=== PATIENT | male | born 1940 | race Caucasian/White ===

== ENCOUNTER 2016-09-08 16:39 | Outpatient (CLI) | payer MEDICARE | END 2016-09-08 16:40 | disposition home or self-care (01) | DX: M50.31 Other cervical disc degeneration, high cervical region (principal); M47.812 Spondylosis without myelopathy or radiculopathy, cervical region ==

== ENCOUNTER 2017-04-12 08:00 | Outpatient (CLI) | payer MEDICARE ==
[2017-04-12 18:15] LABS: BASOPHILS % (AUTO) 0.6 %; EOSINOPHILS # (AUTO) 0.2 10^3/uL (0.0-0.7); HCT - HEMATOCRIT 42.6 % (42.0-52.0); HGB - HEMOGLOBIN 14.1 g/dL (14.0-18.0); LYMPHOCYTES # (AUTO) 0.9 10^3/uL (1.5-3.5); LYMPHOCYTES % (AUTO) 12.7 %; MEAN CORPUSCULAR HEMOGLOBIN 30.8 pg (27.0-31.0); MEAN CORPUSCULAR HGB CONC 33.2 g/dL (32.0-36.0); MEAN CORPUSCULAR VOLUME 92.6 fL (80.0-94.0); MEAN PLATELET VOLUME 8.2 fL (7.4-11.4); MONOCYTES # (AUTO) 0.5 10^3/uL (0.0-1.0); MONOCYTES % (AUTO) 7.4 %; NEUTROPHILS # (AUTO) 5.3 10^3/uL (1.5-6.6); NEUTROPHILS % (AUTO) 76.3 %; NUCLEATED RED BLOOD CELLS AUTO 0.4 /100WBC; RED CELL DISTRIBUTION WIDTH 15.1 % (12.0-15.0); UNCORRECTED WHITE BLOOD COUNT 6.9 x10^3/uL; WHITE BLOOD COUNT 6.9 x10^3/uL (4.8-10.8)
[2017-04-12 18:42] LABS: ALBUMIN/GLOBULIN RATIO 1.5 (1.0-2.2); BILIRUBIN,TOTAL 0.4 mg/dL (0.2-1.0); BUN - BLOOD UREA NITROGEN 16 mg/dL (6-20); CALCIUM 8.9 mg/dL (8.5-10.3); CARBON DIOXIDE - CO2 25 mmol/L (21-32); CHLORIDE 104 mmol/L (101-111); CHOL/HDL RATIO 2.8 (<5.0); CHOLESTEROL 173 mg/dL; CREATININE 0.9 mg/dL (0.6-1.2); GFR - MDRD 82 (>89); GLUCOSE 92 mg/dL (70-100); HDL CHOLESTEROL 61 mg/dL; LDL/HDL RATIO 1.6 (<3.6); POTASSIUM 4.2 mmol/L (3.5-5.0); SODIUM 135 mmol/L (135-145); TOTAL PROTEIN 6.3 g/dL (6.7-8.2); TRIGLYCERIDES 67 mg/dL; VLDL CHOLESTEROL 13 mg/dL
== END 2017-04-12 08:01 | disposition home or self-care (01) ==
LOC: LAB.R 08:00 → LAB.S 08:01
PROVIDERS: ATTEND Nurse Practitioner Family
DX: K92.2 Gastrointestinal hemorrhage, unspecified (principal)
CPT/HCPCS: 36415; 80053; 80061; 85025; G0103; 84153

== ENCOUNTER 2018-02-28 11:34 | Outpatient (CLI) | payer MEDICARE ==
--- NOTE | 2018-02-28 12:29 | XRAY Report ---
Procedure Date: 02/28/2018 Accession Number: [id number] / [id number] Procedure: XRS - Knee 2 View RT CPT Code: FULL RESULT: EXAM: Knee 2 View RT DATE: 02/28/2018 11:59 AM CLINICAL HISTORY: KNEE PAIN, RIGHT, ACUTE COMPARISON: None. TECHNIQUE: 2 views. FINDINGS: Evaluation is limited by suboptimal lateral view. Bones: No fracture is identified. There are mild degenerative changes. Joints: No joint effusion is identified. No subluxation is identified. Soft Tissues: A linear density in the prepatellar soft tissues should be correlated to a potential foreign body. IMPRESSION: Possible foreign body in the prepatellar soft tissues. No fracture or dislocation. Mild degenerative changes. RADIA
== END 2018-02-28 11:35 | disposition home or self-care (01) ==
LOC: DI.S 11:34
PROVIDERS: ATTEND Nurse Practitioner Family
DX: M17.11 Unilateral primary osteoarthritis, right knee (principal)

== ENCOUNTER 2018-04-24 21:27 | Outpatient (CLI) | payer MEDICARE | END 2018-04-24 21:28 | disposition critical access hospital (66) | LOC: EMS 21:27 | PROVIDERS: ATTEND Surgery | DX: K62.5 Hemorrhage of anus and rectum (principal); R55 Syncope and collapse | CPT/HCPCS: A0425; A0427 ==

== ENCOUNTER 2018-04-24 22:02 | Inpatient (IN) | payer MEDICARE ==
[2018-04-24] MEDS ORDERED: SODIUM CHLORIDE 0.9% 2,000 ML IV ONE (22:15)
[2018-04-24] MEDS ORDERED: PANTOPRAZOLE 80 MG in SODIUM CHLORIDE 0.9% 100ML 100 ML IV STA ×2 (22:15→22:16)
--- NOTE | 2018-04-24 22:20 | ED Physician Documentation ---
History of Present Illness - Stated complaint Stated Complaint: GI BLEED - Chief complaint Chief Complaint: Abd Pain - Additonal information Additional information: 78-year-old male presents the emergency department for evaluation of lower GI bleeding which started this evening. The patient reports 4 episodes of bright red blood per rectum. The patient reports an episode of being very lightheaded and passing out. The patient denies injury to his head, neck or torso. The patient has a history of lower GI bleeding in the past which required transfusion. The patient denies any anticoagulant use. Symptoms are described as severe Review of Systems Constitutional: denies: Fever Eyes: denies: Loss of vision Ears: denies: Ear pain Nose: denies: Congestion Throat: denies: Dental pain / toothache Cardiac: denies: Chest pain / pressure GI: reports: Abdominal Pain, Bloody / black stool : denies: Dysuria Musculoskeletal: denies: Neck pain Neurologic: reports: Syncope Psychiatric: denies: Hallucinations Immunocompromised: denies: Immunocompromised PD PAST MEDICAL HISTORY - Past Medical History Cardiovascular: High cholesterol Respiratory: Sleep apnea Endocrine/Autoimmune: None GI: Ulcers, Hiatal hernia, Colon polyps : Frequency HEENT: None Psych: Depression Musculoskeletal: None Derm: None - Past Surgical History Past Surgical History: Yes General: Hiatal hernia repair Cardiovascular: AAA - Present Medications Home Medications: Ambulatory Orders Medication Instructions Recorded Confirmed FLUoxetine [PROzac] 20 mg PO DAILY 12/23/12 12/23/12 Ranitidine HCl [Acid Control] 150 mg PO ONCEDAILY 12/23/12 12/23/12 Zolpidem [Ambien] 10 mg PO HS 12/23/12 12/23/12 Loratadine [Allergy] 04/24/18 Simvastatin 10 mg PO 04/24/18 - Allergies Allergies/Adverse Reactions: Allergies Allergy/AdvReac Type Severity Reaction Status Date / Time No Known Drug Allergies Allergy Verified 04/24/18 22:09 - Social History Does the pt smoke?: No Smoking Status: Never smoker Does the pt drink ETOH?: Yes ETOH Use: Wine Does the pt have substance abuse?: No - Immunizations Immunizations are current?: Yes - POLST Patient has POLST: No PD ED PE NORMAL - General General: Alert and oriented X 3. No: No acute distress (The patient appears acutely ill) - HEENT HEENT: Atraumatic, PERRL, EOMI - Neck Neck: Supple, no meningeal sign - Cardiac Cardiac: RRR, Strong equal pulses - Respiratory Respiratory: No respiratory distress - Abdomen Abdomen: Soft. No: Non tender (Diffuse abdominal tenderness) - Back Back: No CVA TTP - Derm Derm: Normal color - Extremities Extremities: No deformity - Neuro Neuro: Alert and oriented X 3, Normal speech - Psych Psych: Normal mood Results - Vitals Vitals: Vital Signs - 24 hr 04/24/18 04/24/18 22:04 23:27 Temperature 36.2 C L Heart Rate 66 66 Respiratory 14 14 Rate Blood Pressure 108/71 116/63 O2 Saturation 100 98 Oxygen O2 Source Room air - Labs Labs: Laboratory Tests 04/24/18 04/24/18 04/24/18 22:15 22:15 22:15 WBC 11.2 H RBC 3.54 L Hgb 11.3 L Hct 32.7 L MCV 92.3 MCH 32.0 H MCHC 34.7 RDW 13.8 Plt Count 254 MPV 7.5 Neut # (Auto) 9.6 H Lymph # (Auto) 0.9 L Douglas # (Auto) 0.5 Eos # (Auto) 0.1 Baso # (Auto) 0.0 Absolute Nucleated RBC 0.00 Nucleated RBC % 0.0 PT 12.2 INR 1.1 APTT 20.6 L Sodium 139 Potassium 3.7 Chloride 108 Carbon Dioxide 24 Anion Gap 7.0 BUN 17 Creatinine 1.1 Estimated GFR (MDRD) 65 L Glucose 149 H Calcium 8.1 L Total Bilirubin 0.5 AST 16 ALT 24 Alkaline Phosphatase 38 L Troponin I Total Protein 4.9 L Albumin 3.0 L Globulin 1.9 L Albumin/Globulin Ratio 1.6 Lipase 23 Urine Color Urine Clarity Urine pH Ur Specific Formoso Urine Protein Urine Glucose (UA) Urine Ketones Urine Occult Blood Urine Nitrite Urine Bilirubin Urine Urobilinogen Ur Leukocyte Esterase Ur Microscopic Review Urine Culture Comments Ethyl Alcohol < 5.0 Blood Type Antibody Screen 04/24/18 04/24/18 04/25/18 22:15 22:15 00:12 WBC RBC Hgb Hct MCV MCH MCHC RDW Plt Count MPV Neut # (Auto) Lymph # (Auto) Douglas # (Auto) Eos # (Auto) Baso # (Auto) Absolute Nucleated RBC Nucleated RBC % PT INR APTT Sodium Potassium Chloride Carbon Dioxide Anion Gap BUN Creatinine Estimated GFR (MDRD) Glucose Calcium Total Bilirubin AST ALT Alkaline Phosphatase Troponin I 0.04 Total Protein Albumin Globulin Albumin/Globulin Ratio Lipase Urine Color YELLOW Urine Clarity CLEAR Urine pH 6.0 Ur Specific Formoso 1.025 Urine Protein NEGATIVE Urine Glucose (UA) NEGATIVE Urine Ketones 15 H Urine Occult Blood NEGATIVE Urine Nitrite NEGATIVE Urine Bilirubin NEGATIVE Urine Urobilinogen 0.2 (NORMAL) Ur Leukocyte Esterase NEGATIVE Ur Microscopic Review NOT INDICATED Urine Culture Comments NOT INDICATED Ethyl Alcohol Blood Type A POSITIVE Antibody Screen NEGATIVE - Rads (name of study) CT abd/pelvis Radiology: Final report received (IMPRESSION: 1. No acute inflammatory or obstructive process seen in the abdomen or pelvis. 2. Small hiatal hernia. 3. Colonic diverticulosis. 4. Post-prostatectomy and partial colectomy. 5. Moderate atherosclerotic disease of the aorta and branches. Severe ) PD MEDICAL DECISION MAKING - ED course ED course: The patient has not had any further episodes of bleeding while in the emergency department. The patient will require admission to the hospital for further evaluation, multiple CBCs and evaluation for colonoscopy. And possibly transfusion. The findings and plan were discussed with the patient who understands and agrees to the plan. The case is discussed with the hospitalist Dr. Shane who accepts the patient onto her service. - Sepsis Event Vital Signs: Vital Signs - 24 hr 04/24/18 04/24/18 22:04 23:27 Temperature 36.2 C L Heart Rate 66 66 Respiratory 14 14 Rate Blood Pressure 108/71 116/63 O2 Saturation 100 98 Oxygen O2 Source Room air Departure - Departure Disposition: 66 [facility] DC/Xfer Clinical Impression: Iliac artery aneurysm GI bleed Qualifiers: GI bleed type/associated pathology: unspecified gastrointestinal hemorrhage type Qualified Code(s): K92.2 - Gastrointestinal hemorrhage, unspecified Abdominal pain Qualifiers: Abdominal location: unspecified location Qualified Code(s): R10.9 - Unspecified abdominal pain Syncopal episodes Qualifiers: Syncope type: unspecified Qualified Code(s): R55 - Syncope and collapse
[2018-04-24 22:22] LABS: BASOPHILS % (AUTO) 0.3 %; EOSINOPHILS # (AUTO) 0.1 10^3/uL (0.0-0.7); EOSINOPHILS % (AUTO) 0.5 %; HGB - HEMOGLOBIN 11.3 g/dL (14.0-18.0); LYMPHOCYTES # (AUTO) 0.9 10^3/uL (1.5-3.5); LYMPHOCYTES % (AUTO) 8.2 %; MEAN CORPUSCULAR HGB CONC 34.7 g/dL (32.0-36.0); MEAN CORPUSCULAR VOLUME 92.3 fL (80.0-94.0); MEAN PLATELET VOLUME 7.5 fL (7.4-11.4); MONOCYTES # (AUTO) 0.5 10^3/uL (0.0-1.0); MONOCYTES % (AUTO) 4.8 %; NEUTROPHILS # (AUTO) 9.6 10^3/uL (1.5-6.6); NEUTROPHILS % (AUTO) 86.2 %; PLT - PLATELET COUNT 254 10^3/uL (130-450); RED BLOOD COUNT 3.54 10^6/uL (4.70-6.10); RED CELL DISTRIBUTION WIDTH 13.8 % (12.0-15.0); WHITE BLOOD COUNT 11.2 x10^3/uL (4.8-10.8)
[2018-04-24 22:29] LABS: INR 1.1 (0.8-1.2); PT - PROTHROMBIN TIME 12.2 secs (9.9-12.6)
[2018-04-24 22:36] LABS: ALBUMIN/GLOBULIN RATIO 1.6 (1.0-2.2); ALKALINE PHOSPHATASE 38 IU/L (42-121); ALT ALANINE AMINOTRANSFERASE 24 IU/L (10-60); AST ASPARTATE AMINOTRANSFERASE 16 IU/L (10-42); BILIRUBIN,TOTAL 0.5 mg/dL (0.2-1.0); BUN - BLOOD UREA NITROGEN 17 mg/dL (6-20); CALCIUM 8.1 mg/dL (8.5-10.3); CARBON DIOXIDE - CO2 24 mmol/L (21-32); CHLORIDE 108 mmol/L (101-111); CREATININE 1.1 mg/dL (0.6-1.2); GFR - MDRD 65 (>89); GLUCOSE 149 mg/dL (70-100); LIPASE 23 U/L (22-51); SODIUM 139 mmol/L (135-145); TOTAL PROTEIN 4.9 g/dL (6.7-8.2)
[2018-04-24] MEDS ORDERED: IOPAMIDOL-300 100 ML VIAL ONE (23:32)
[2018-04-24] MEDS ORDERED: IOPAMIDOL-300 100 ML VIAL IVP ONE (23:52)
--- NOTE | 2018-04-25 00:09 | CT Report ---
Reason: pain Procedure Date: 04/24/2018 Accession Number: [id number] / [id number] Procedure: CT - Abdomen/Pelvis W/ CPT Code: FULL RESULT: EXAM: CT ABDOMEN AND PELVIS EXAM DATE: 04/24/2018 11:57 PM. CLINICAL HISTORY: Pain. COMPARISONS: CT ABD AND PELVIS WITH CONTRAST 11/08/2012 3:48 PM. TECHNIQUE: Routine helical CT imaging was performed through the abdomen and pelvis. IV contrast: Yes. Enteric contrast: No. Reconstructions: Coronal and sagittal. In accordance with CT protocol optimization, one or more of the following dose reduction techniques were utilized for this exam: automated exposure control, adjustment of mA and/or KV based on patient size, or use of iterative reconstructive technique. FINDINGS: Lung Bases: Small hiatal hernia. Severe coronary calcifications. Liver: Unremarkable. No suspicious masses. Gallbladder/Bile Ducts: Unremarkable. Spleen: Unremarkable. Pancreas: Unremarkable. Adrenal Glands: Unremarkable. Kidneys: Small cysts bilaterally. No suspicious masses or hydronephrosis. Peritoneal Cavity/Bowel: Colonic diverticulosis. Evidence of previous partial colectomy. No bowel obstruction or inflammatory process seen. No free air or significant free fluid. No masses or adenopathy. The appendix is normal. No excessive stool burden. Pelvic Organs: Suspect prior prostatectomy. Bladder appears unremarkable. Vasculature: Right common internal iliac artery aneurysms measuring up to 35 x 34 mm. Mild ectasia of the left common iliac artery up to 25 mm. No aortic aneurysm or acute vascular abnormality seen. Underlying moderate atherosclerotic disease of the aorta and branches. Bones: No significant abnormality with note of advanced lower lumbar degenerative changes. Other: None. IMPRESSION: 1. No acute inflammatory or obstructive process seen in the abdomen or pelvis. 2. Small hiatal hernia. 3. Colonic diverticulosis. 4. Post-prostatectomy and partial colectomy. 5. Moderate atherosclerotic disease of the aorta and branches. Severe coronary calcifications. 6. Right common internal iliac artery aneurysm measuring up to 35 x 34 mm, increased from prior study when it measured 30 x 30 mm at the same level. RADIA ADDENDUM: 04/25/18 00:42 Additional history: Cramping abdominal pain. GI bleed.
[2018-04-25 00:18] LABS: BILIRUBIN,URINE NEGATIVE (NEGATIVE); GLUCOSE, URINE (UA) NEGATIVE (NEGATIVE); KETONES,URINE (UA) 15 mg/dL (NEGATIVE); LEUKOCYTE ESTERASE, URINE NEGATIVE (NEGATIVE); NITRITE,URINE NEGATIVE (NEGATIVE); OCCULT BLOOD,URINE NEGATIVE (NEGATIVE); PROTEIN,URINE NEGATIVE (NEGATIVE); UROBILINOGEN,URINE 0.2 (NORMAL) E.U./dL (NORMAL)
[2018-04-25 00:20] LABS: CLARITY,URINE CLEAR (CLEAR)
--- NOTE | 2018-04-25 00:24 | HISTORY & PHYSICAL EXAMINATION ---
Chief Complaint - Chief Complaint Chief Complaint: Syncope after 4 bloody bowel movements History of Present Illness - Admitted From Admitted From:: ER/Home - History Obtained From Records Reviewed: Kieran Malave History obtained from: Patient Exam Limitations: Forgetful - History of Present Illness HPI Comment/Other: 78-year-old white male who presents with 4 episodes of bright red blood per rectum in the last day. This made him lightheaded and dizzy and he passed out. EMS reported that his systolic was 70 but when he was brought to our emergency room his systolic is been consistently above 100. His usual blood pressure is 100-108 according to some of his records at [facility], and his primary care provider. Previous hemoglobin April 2017 is 14.1. With today's visit to the emergency room it is now 11. He does have a history of lower GI bleeding and has had a left hemicolectomy because of it. In the past his hemoglobin has been as low as 7 when he needed transfusions. With his last GI bleed in September 2016 he dropped to 10 g of hemoglobin when he was seen at the [facility]. With that visit he was sent home from the emergency room.He also has a history of prostate cancer with a prostatectomy But he did not get radiation. He has no history of radiation proctitis. He denies chest pain, shortness of breath. He is tired. He was last seen by his primary care provider in October 2017 when he was complaining of belching and acid reflux as well as fatigue. Although that Resulted in referral to the [facility], there is no record of what was done With that visit . He reports that he was told to take ranitidine twice a day as opposed to once a day.The patient admits that memory is starting to get to be a problem for him. He cannot remember some of the visits he has been to. I had to remind him that he been at [facility] in September 2016. I also had to remind him that he was at [facility] for an episode of GI bleeding and admission. He drinks 1-2 drinks a day but wonders if maybe he drinks more. He also states that last night he drank 4-5 drinks because he had a fight with his girlfriend and broke up with her. This is important to him because he associates alcohol intake with GI bleeding. 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 EGd and scope w hiatal hernia, esophagitis, diverticular disease. Seen by [facility] 09/2010 who recommended surgery. Then seen at [facility] 11/05/13 for another GI bleed and pancolonic diverticulosis found again. [facility] w [facility] 09/2016. Resulted in sigmoid colectomy) : reports: Nocturia (Once a night), Frequency, Other (Left kidney mass being follow-through surveillance) HEENT: reports: Chronic hearing loss ( and needs hearing aids.) Psych: reports: Depression (With insomnia. He is on Ambien 10 mg tablet one half tablet a day with an agreement of no more than 70 tablets per month.) Musculoskeletal: reports: Osteoarthritis, Other (Fall with right knee pain January 2018.Carpal tunnel syndrome.) Derm: reports: None MRSA Hx?: No - Past Surgical History General: reports: Hiatal hernia repair, Other (Right inguinal hernia repair 1993) Cardiovascular: reports: AAA Other past surgical history: prostatectomy - Family & Social History Family History Comment/Other: Dad: at 77 of complications of alcoholism and smoking. Mom:Had severe depression and of suicide. Siblings:One half brother who he is not in contact with for the last 2 years because they had a fight. Is morbidly obese but does not know anything else about his medical history. Children: 5 Children. All 5 are on antidepressants. Two are alcoholics. To his knowledge no one has cancer, heart attack, stroke, diabetes, thyroid disease. Living arrangement: At home Living Situation: Alone Social History Notes: He was born in [place]. Came out to the [facility] when he was 16 because his dad moved. He has been and 4 times. 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 He smoked socially in the 1960s and did it only when he went out at night. Maybe 2-3 cigarettes a night at a time. Quit smoking in the . Alcohol is a glass of wine, up to 2 a night. Last night was 5. He lives alone. Again broke up with his last girlfriend last night. He denies recreational substance abuse. States that he is still able to do his activities of daily living and can drive a car, clean his house, pay the bills. Does not need a cane or walker. - Substance History Use: Uses substance without health or social issues: Alcohol Abuse: Recurrent use of substance despite neg consequences: NONE Dependence: Experiences withdrawal or developed tolerances: NONE - POLST Patient has POLST: No POLST Status: Full Code (He states that he has never been asked before about his advanced directives or CODE STATUS. He is startled about the question I explained to him that it is a fairly routine question we ask and people who were in the hospital, especially if they are over 55. He says that he will have to think about what he defines as a quality of life to then make himself DNR.) Meds/Allgy - Home Medications Home Medications: Ambulatory Orders Medication Instructions Recorded Confirmed FLUoxetine [PROzac] 20 mg PO DAILY 12/23/12 12/23/12 Ranitidine HCl [Acid Control] 150 mg PO ONCEDAILY 12/23/12 12/23/12 Zolpidem [Ambien] 10 mg PO HS 12/23/12 12/23/12 Loratadine [Allergy] 04/24/18 Simvastatin 10 mg PO 04/24/18 - Allergies Allergies/Adverse Reactions: Allergies Allergy/AdvReac Type Severity Reaction Status Date / Time No Known Drug Allergies Allergy Verified 04/24/18 22:09 Review of Systems - Constitutional Constitutional: reports: Fatigue. denies: Fever, Chills, Malaise, Weakness, Poor appetite, Diaphoresis, Night sweats, Weight gain, Weight loss - Eyes Eyes: denies: Pain, Irritation, Amaurosis, Blurred vision, Field loss, Vision loss - Ears, Nose & Throat Ears, Nose & Throat: reports: Hearing loss. denies: Ear pain, Nasal obstruction, Nasal congestion, Postnasal drainage, Sore throat, Hoarseness - Cardiovascular Cariovascular: reports: Lightheadedness, Syncope. denies: Irregular heart rate, Palpitations, Chest pain, Edema, Exertional dyspnea, Decr. exercise tolerance - Respiratory Respiratory: reports: Apnea. denies: Cough, Sputum production, Wheezing, Snoring, Orthopnea, SOB at rest, SOB with exertion - Gastrointestinal Gastrointestinal: reports: Rectal bleeding, Bloody stools, Reflux/heartburn, Bloating. denies: Abdominal pain, Abdominal distention, Constipation, Diarrhea, Change in bowel habits, Nausea, Vomiting, Bile emesis, Coffee grounds emesis - Genitourinary Genitourinary: reports: Nocturia. denies: Dysuria, Frequency, Urgency, Hematuria, Incontinence, Flank pain - Musculoskeletal Musculoskeletal: denies: Muscle pain, Back pain, Muscle aches, Stiffness, Muscle weakness, Gout, Joint pain - Integumentary Integumentary: denies: Rash, Pruritis, Lesions, Dryness - Neurological Neurological: reports: Memory problems. denies: General weakness, Focal weakness, Headache, Dizziness, Abnormal gait, Seizures, Incoordination, Slurred speech - Psychiatric Psychiatric: reports: Depression, Anxiety. denies: Suicidal - Endocrine Endocrine: denies: Polyuria, Polydypsia, Polyphagia - Hematologic/Lymphatic Hematologic/Lymphatic: reports: Anemia. denies: Bruising, Petechiae Exam - Vital Signs Reviewed Vital Signs: Yes Vital Signs: Vital Signs x48h Temp Pulse Resp BP Pulse Ox 04/24/18 23:27 66 14 116/63 98 04/24/18 22:04 36.2 C L 66 14 108/71 100 - Physical Exam General Appearance: positive: No acute distress, Alert, Other (White male who looks younger than stated age, tanned) Eyes Bilateral: positive: PERRL, EOMI ENT: positive: Pharynx nml Neck: positive: No JVD. negative: Stiff neck, Carotid bruit Respiratory: negative: Chest non-tender, Wheezes, Rales, Rhonchi Cardiovascular: positive: Regular rate & rhythm, Systolic murmur. negative: Gallop/S4, Friction rub Peripheral Pulses: positive: 2+ Abdomen: positive: Non-tender, No organomegaly, Nml bowel sounds, No distention Skin: positive: Warm, Dry Extremities: positive: Full ROM, No pedal edema Neurologic/Psychiatric: positive: Oriented x3, CN's nml (2-12), Motor nml Conclusion/Plan - Problem List (1) Lower gastrointestinal bleed Conclusion/Plan: This will be 1 of many admissions for lower GI bleeding in this elderly gentleman. He is already received several transfusions in the past since 2004. Has had a left colectomy. Today presents as several bloody bowel movements with syncope. Troponins are negative. White blood pressure is low he is hemodynamically stable in the emergency room.Although he has had prostate cancer and a prostatectomy, he is not felt to be bleeding from proctitis, etc. He does have a history of esophagitis, but again, he is not felt to be having an upper GI bleed. Plan: Inpatient admission for GI bleed Every 6 hours hemoglobin and hematocrit General surgery consult Transfuse when hemoglobin less than 7 or patient becomes symptomatic with further syncope, angina, shortness of breath (2) Acute post-hemorrhagic anemia Conclusion/Plan: Hemoglobin is 14 a year ago. 11 today. Again, we will do every 6 hours hemoglobin and hematocrit. Transfusion recommendations as above. (3) Iliac artery aneurysm, right Conclusion/Plan: Evaluated by CT with contrast. His right common and internal iliac artery aneurysm is 35 x 34, increased from prior study when it measured 30 x 30 at the same level. He was referred to vascular surgery at [facility]. He says he is seen regularly. He was just seen 3 weeks ago according to his memory. At that time the aneurysm is about the same size as what is being described now according to him. (4) Insomnia secondary to depression with anxiety Conclusion/Plan: Has been taking Ambien for over 20 years. In the last few months he has been asked to decrease his Ambien use from 10 mg to 5 mg. He is also been asked to make the 20 tablets last a month. Will resume Ambien as needed while here to avoid withdrawal and increased anxiety. He will also be kept on his SSRI (5) Alcohol abuse Conclusion/Plan: This gentleman says that he drinks every day. He feels like he does not have a problem with alcohol abuse. No history of withdrawal, shakes, tremors. He has been told that he should cut back on his drinking by people in his life. 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 Follow-up in the outpatient setting with his primary care provider. - Lab Results Fish Bones: 04/24/18 22:15 04/24/18 22:15 - Diagnostic Imaging Results Diagnostic Imaging Results: positive: Final report reviewed Diagnostic Imaging Results Comments: CT abd/pelvis w contrast: FINDINGS: Lung Bases: Small hiatal hernia. Severe coronary calcifications. Liver: Unremarkable. No suspicious masses. Gallbladder/Bile Ducts: Unremarkable. Spleen: Unremarkable. Pancreas: Unremarkable. Adrenal Glands: Unremarkable. Kidneys: Small cysts bilaterally. No suspicious masses or hydronephrosis. Peritoneal Cavity/Bowel: Colonic diverticulosis. Evidence of previous partial colectomy. No bowel obstruction or inflammatory process seen. No free air or significant free fluid. No masses or adenopathy. The appendix is normal. No excessive stool burden. Pelvic Organs: Suspect prior prostatectomy. Bladder appears unremarkable. Vasculature: Right common internal iliac artery aneurysms measuring up to 35 x 34 mm. Mild ectasia of the left common iliac artery up to 25 mm. No aortic aneurysm or acute vascular abnormality seen. Underlying moderate atherosclerotic disease of the aorta and branches. Bones: No significant abnormality with note of advanced lower lumbar degenerative changes. Other: None. IMPRESSION: 1. No acute inflammatory or obstructive process seen in the abdomen or pelvis. 2. Small hiatal hernia. 3. Colonic diverticulosis. 4. Post-prostatectomy and partial colectomy. 5. Moderate atherosclerotic disease of the aorta and branches. Severe coronary calcifications. 6. Right common internal iliac artery aneurysm measuring up to 35 x 34 mm, increased from prior study when it measured 30 x 30 mm at the same level. - EKG Results EKG Interpreted Independently: No EKG Findings: NSR. RBBB. IVCD. Core Measures - Anticipated LOS I expect patient to be DC'd or transferred within 96 hours.: Yes - DVT/VTE - Prophylaxis VTE/DVT Device ordered at admit?: Yes
[2018-04-25] MEDS ORDERED: ONDANSETRON 4 MG/2 ML VIAL IVP PRN (00:42)
[2018-04-25] MEDS ORDERED: PROCHLORPERAZINE 10 MG/2 ML VIAL IVP PRN (00:42)
[2018-04-25] MEDS: SODIUM CHLORIDE 0.9% 1,000 ML IV SCH ×3 (01:57→23:07)
[2018-04-25] MEDS: SODIUM CHLORIDE FLUSH 0.9% 10 ML SYRINGE IVP SCH ×3 (01:58→21:51)
[2018-04-25 05:46] LABS: CALCIUM 7.9 mg/dL (8.5-10.3); CREATININE 0.7 mg/dL (0.6-1.2)
[2018-04-25] MEDS: SODIUM CHLORIDE FLUSH 0.9% 10 ML SYRINGE IVP PRN ×2 (06:35→09:15)
[2018-04-25] MEDS: PANTOPRAZOLE 40 MG VIAL IVP SCH (06:35)
[2018-04-25] MEDS: POLYETHYLENE GLYCOL 3350 17 GM PACKET PO SCH (07:57)
[2018-04-25] MEDS: FLUoxetine 10 MG CAPSULE PO SCH (08:18)
[2018-04-25] MEDS ORDERED: INSULIN REGULAR HUMAN 100 UNIT/1 ML 10 ML MDV IVP STA (09:10)
[2018-04-25] MEDS ORDERED: DEXTROSE 50% ABBOJECT 25 GM/50 ML SYRINGE IVP STA (09:10)
--- NOTE | 2018-04-25 09:29 | PROVIDER PROGRESS NOTE ---
Hospitalist Cross-cover Note - Cross-Cover Note Cross-Cover Note: Patient admitted last night for GI bleed. Came to the emergency department after having numerous episodes of bright red blood per rectum. Patient's baseline hemoglobin was 14 and on presentation was down to 11. Recheck this morning his hemoglobin is down to 10. Overnight he has not had any further bloody bowel movements. He appears to be stable in bed and was examined without any significant findings on examination. Patient will be monitored throughout the day with serial H&H if he does not have any further episodes of bleeding and hemoglobin remained stable he may be discharged tomorrow morning. If patient starts to have increased bleeding or hemoglobin starts to drop we will need to consult surgery for colonoscopy.
[2018-04-25] MEDS: ZOLPIDEM 5 MG TABLET PO SCH (21:50)
[2018-04-26] MEDS: SODIUM CHLORIDE FLUSH 0.9% 10 ML SYRINGE IVP SCH ×3 (00:44→21:47)
[2018-04-26 05:44] LABS: ALBUMIN 2.7 g/dL (3.2-5.5); ALBUMIN/GLOBULIN RATIO 1.6 (1.0-2.2); ALKALINE PHOSPHATASE 38 IU/L (42-121); ALT ALANINE AMINOTRANSFERASE 10 IU/L (10-60); AST ASPARTATE AMINOTRANSFERASE 13 IU/L (10-42); BILIRUBIN,TOTAL 0.6 mg/dL (0.2-1.0); BUN - BLOOD UREA NITROGEN 11 mg/dL (6-20); CALCIUM 7.7 mg/dL (8.5-10.3); CARBON DIOXIDE - CO2 23 mmol/L (21-32); CHLORIDE 111 mmol/L (101-111); CREATININE 0.8 mg/dL (0.6-1.2); GFR - MDRD 93 (>89); GLUCOSE 102 mg/dL (70-100); SODIUM 138 mmol/L (135-145); TOTAL PROTEIN 4.4 g/dL (6.7-8.2)
[2018-04-26 05:54] LABS: VBG PH 7.374 (7.31-7.41)
[2018-04-26 06:11] LABS: HGB - HEMOGLOBIN 8.2 g/dL (14.0-18.0); MEAN CORPUSCULAR HGB CONC 33.4 g/dL (32.0-36.0); MEAN CORPUSCULAR VOLUME 92.8 fL (80.0-94.0); RED BLOOD COUNT 2.63 10^6/uL (4.70-6.10); RED CELL DISTRIBUTION WIDTH 13.9 % (12.0-15.0); WHITE BLOOD COUNT 4.4 x10^3/uL (4.8-10.8)
[2018-04-26] MEDS: PANTOPRAZOLE 40 MG VIAL IVP SCH (06:18)
[2018-04-26] MEDS: SODIUM CHLORIDE FLUSH 0.9% 10 ML SYRINGE IVP PRN (06:24)
[2018-04-26] MEDS: FLUoxetine 10 MG CAPSULE PO SCH (08:48)
[2018-04-26] MEDS: CALCIUM CARBONATE CHEW 500 MG TABLET PO PRN ×2 (08:48→14:42)
[2018-04-26] MEDS: POLYETHYLENE GLYCOL 3350 17 GM PACKET PO SCH (08:49)
[2018-04-26] MEDS: SODIUM CHLORIDE 0.9% 1,000 ML IV SCH ×2 (09:14→11:54)
--- NOTE | 2018-04-26 12:12 | PROVIDER PROGRESS NOTE ---
Assessment/Plan - Problem List (1) Lower gastrointestinal bleed Assessment/Plan: The current-jelly BMs continue. Continue to monitor clincally, BPs every 2-4 hours, not just per shift. Will try to advance diet, (2) Acute post-hemorrhagic anemia Assessment/Plan: The H.H continue to drop, now Hgb down to 8.2. This could be partly from hemodilution vs GI blood loss anemia. Will decrease iv hydration rate from 100 cc/hr to 40 cc/hr. Monitor CBC q6h. Pt was told he will not be DCh today and that he may need a blood transfusion. (3) Iliac artery aneurysm Assessment/Plan: Stable. (4) Alcohol abuse Assessment/Plan: Pt told the admitting MD that he does not feel he has a alcoholism problem, has never had DTs. He was eager to be DCh this am, therefore I am concerned about withdrawal symptoms starting. Will add a CIWA protocol, to use Ativan if needed. - Current Meds Current Meds: Current Medications Generic Name Dose Route Start Last Admin Trade Name Freq PRN Reason Stop Dose Admin Calcium Carbonate/Glycine 500 mg 04/25/18 09:04 04/26/18 08:48 Tums PO 500 mg BID PRN Administration acid reflux Fluoxetine HCl 20 mg 04/25/18 09:00 04/26/18 08:48 Prozac PO 20 mg DAILY JEFFY Administration Sodium Chloride 1,000 mls @ 40 mls/hr 04/26/18 11:34 04/26/18 11:54 Normal Saline 0.9% IV 40 mls/hr .Q25H JEFFY Administration Pantoprazole Sodium 40 mg 04/25/18 07:00 04/26/18 06:18 Protonix IVP 40 mg QDAC JEFFY Administration Polyethylene Glycol 17 gm 04/25/18 09:00 04/26/18 08:49 Miralax PO Not Given DAILY JEFFY Sodium Chloride 10 ml 04/25/18 00:42 04/26/18 06:24 Normal Saline Flush 0.9% IVP 10 ml PRN PRN Administration NEEDED PER PROVIDER ORDERS Sodium Chloride 10 ml 04/25/18 01:00 04/26/18 08:31 Normal Saline Flush 0.9% IVP Not Given 0100,0900,1700 JEFFY Zolpidem Tartrate 10 mg 04/25/18 21:00 04/25/18 21:50 Ambien PO 10 mg HS JEFFY Administration - Lab Result Fish Bone Diagrams: 04/26/18 12:05 04/26/18 04:50 - Additional Planning My Orders: My Active Orders 04/26/18 11:34 Sodium Chloride 0.9% [Normal Saline 0.9%] 1,000 ml IV 40 mls/hr 04/26/18 12:00 CBC - COMP BLD CT W/AUTO DIFF [HEME] Timed 04/26/18 18:00 CBC - COMP BLD CT W/AUTO DIFF [HEME] Timed 04/26/18 Lunch DIET [Soft (Low Fiber) Diet] [DIET] 04/27/18 05:00 CBC - COMP BLD CT W/AUTO DIFF [HEME] DAILYLAB 04/28/18 05:00 CBC - COMP BLD CT W/AUTO DIFF [HEME] DAILYLAB 04/29/18 05:00 CBC - COMP BLD CT W/AUTO DIFF [HEME] DAILYLAB Subjective - Subjective Patient Reports: Resting Comfortably, Diarrhea, Other (Has 3 bloody BM's since yesterday evening. Has an appetite.) Objective Vital Signs: Vital Signs - 24 hr 04/25/18 04/26/18 04/26/18 15:38 00:00 03:30 Temperature 36.3 C L 36.2 C L Heart Rate [ 65 62 63 Brachial] Respiratory 20 18 17 Rate Blood Pressure 118/59 L 101/57 L 109/65 [Left Brachial artery] O2 Saturation 98 98 98 04/26/18 04/26/18 06:35 07:16 Temperature 36.5 C 36.6 C Heart Rate [ 66 64 Brachial] Respiratory 16 18 Rate Blood Pressure 106/61 116/65 [Left Brachial artery] O2 Saturation 98 99 Oxygen O2 Source Room air I&O (Last 24 Hrs): Intake and Output Totals x24h 04/24/18 04/25/18 04/26/18 23:59 23:59 23:59 Intake Total 100 6414.000 1360 Output Total 300 400 Balance 100 6114.000 960 General: Alert, Oriented x3 HEENT: Mucous membr. moist/pink Neck: Supple, No JVD Neuro: Non Focal Cardiovascular: Regular rate, No murmurs Respiratory: No respiratory distress, Breath sounds nml Abdomen: Soft, No tenderness, Other (Hypoactive bowel sounds) Extremities: No edema - Results Results: Laboratory Results WBC 4.4 x10^3/uL (4.8-10.8) L 04/26/18 04:50 RBC 2.63 10^6/uL (4.70-6.10) L 04/26/18 04:50 Hgb 8.2 g/dL (14.0-18.0) L 04/26/18 04:50 Hct 24.4 % (42.0-52.0) L 04/26/18 04:50 MCV 92.8 fL (80.0-94.0) 04/26/18 04:50 MCH 31.0 pg (27.0-31.0) 04/26/18 04:50 MCHC 33.4 g/dL (32.0-36.0) 04/26/18 04:50 RDW 13.9 % (12.0-15.0) 04/26/18 04:50 Plt Count 201 10^3/uL (130-450) 04/26/18 04:50 MPV 8.0 fL (7.4-11.4) 04/26/18 04:50 Neut # (Auto) 9.6 10^3/uL (1.5-6.6) H 04/24/18 22:15 Lymph # (Auto) 0.9 10^3/uL (1.5-3.5) L 04/24/18 22:15 [place] # (Auto) 0.5 10^3/uL (0.0-1.0) 04/24/18 22:15 Eos # (Auto) 0.1 10^3/uL (0.0-0.7) 04/24/18 22:15 Baso # (Auto) 0.0 10^3/uL (0.0-0.1) 04/24/18 22:15 Absolute Nucleated RBC 0.00 x10^3/uL 04/24/18 22:15 Nucleated RBC % 0.0 /100WBC 04/24/18 22:15 PT 12.2 secs (9.9-12.6) 04/24/18 22:15 INR 1.1 (0.8-1.2) 04/24/18 22:15 APTT 20.6 secs (24.9-33.3) L 04/24/18 22:15 VBG pH 7.374 (7.31-7.41) 04/26/18 04:50 Ionized Calcium 1.12 mmol/L (1.15-1.33) L 04/26/18 04:50 Sodium 138 mmol/L (135-145) 04/26/18 04:50 Potassium 3.7 mmol/L (3.5-5.0) 04/26/18 04:50 Chloride 111 mmol/L (101-111) 04/26/18 04:50 Carbon Dioxide 23 mmol/L (21-32) 04/26/18 04:50 Anion Gap 4.0 (6-13) L 04/26/18 04:50 BUN 11 mg/dL (6-20) 04/26/18 04:50 Creatinine 0.8 mg/dL (0.6-1.2) 04/26/18 04:50 Estimated GFR (MDRD) 93 (>89) 04/26/18 04:50 Glucose 102 mg/dL (70-100) H 04/26/18 04:50 Calcium 7.7 mg/dL (8.5-10.3) L 04/26/18 04:50 Ionized Calcium YES 04/26/18 04:50 Total Bilirubin 0.6 mg/dL (0.2-1.0) 04/26/18 04:50 AST 13 IU/L (10-42) 04/26/18 04:50 ALT 10 IU/L (10-60) 04/26/18 04:50 Alkaline Phosphatase 38 IU/L (42-121) L 04/26/18 04:50 Troponin I 0.04 ng/mL (<0.49) 04/24/18 22:15 Total Protein 4.4 g/dL (6.7-8.2) L 04/26/18 04:50 Albumin 2.7 g/dL (3.2-5.5) L 04/26/18 04:50 Globulin 1.7 g/dL (2.1-4.2) L 04/26/18 04:50 Albumin/Globulin Ratio 1.6 (1.0-2.2) 04/26/18 04:50 Lipase 23 U/L (22-51) 04/24/18 22:15 Urine Color YELLOW 04/25/18 00:12 Urine Clarity CLEAR (CLEAR) 04/25/18 00:12 Urine pH 6.0 PH (5.0-7.5) 04/25/18 00:12 Ur Specific [place] 1.025 (1.002-1.030) 04/25/18 00:12 Urine Protein NEGATIVE mg/dL (NEGATIVE) 04/25/18 00:12 Urine Glucose (UA) NEGATIVE mg/dL (NEGATIVE) 04/25/18 00:12 Urine Ketones 15 mg/dL (NEGATIVE) H 04/25/18 00:12 Urine Occult Blood NEGATIVE (NEGATIVE) 04/25/18 00:12 Urine Nitrite NEGATIVE (NEGATIVE) 04/25/18 00:12 Urine Bilirubin NEGATIVE (NEGATIVE) 04/25/18 00:12 Urine Urobilinogen 0.2 (NORMAL) E.U./dL (NORMAL) 04/25/18 00:12 Ur Leukocyte Esterase NEGATIVE (NEGATIVE) 04/25/18 00:12 Ur Microscopic Review NOT INDICATED 04/25/18 00:12 Urine Culture Comments NOT INDICATED 04/25/18 00:12 Ethyl Alcohol < 5.0 mg/dL 04/24/18 22:15 Blood Type A POSITIVE 04/24/18 22:15 Antibody Screen NEGATIVE 04/24/18 22:15 - Procedures Procedures: Procedures LAPAROSCOPIC REPAIR INDIRECT INGUINAL HERNIA W GRAFT OR PROS (12/27/12) ABX Reporting Has patient been on IV antibiotics over the past 48 hours?: No
[2018-04-26 12:17] LABS: BASOPHILS % (AUTO) 0.8 %; EOSINOPHILS # (AUTO) 0.1 10^3/uL (0.0-0.7); EOSINOPHILS % (AUTO) 1.4 %; HGB - HEMOGLOBIN 8.6 g/dL (14.0-18.0); LYMPHOCYTES # (AUTO) 0.8 10^3/uL (1.5-3.5); LYMPHOCYTES % (AUTO) 15.3 %; MEAN CORPUSCULAR HEMOGLOBIN 31.5 pg (27.0-31.0); MEAN CORPUSCULAR HGB CONC 34.2 g/dL (32.0-36.0); MEAN PLATELET VOLUME 7.6 fL (7.4-11.4); MONOCYTES # (AUTO) 0.3 10^3/uL (0.0-1.0); MONOCYTES % (AUTO) 6.4 %; NEUTROPHILS # (AUTO) 3.9 10^3/uL (1.5-6.6); NEUTROPHILS % (AUTO) 76.1 %; PLT - PLATELET COUNT 207 10^3/uL (130-450); RED BLOOD COUNT 2.73 10^6/uL (4.70-6.10); RED CELL DISTRIBUTION WIDTH 13.9 % (12.0-15.0); WHITE BLOOD COUNT 5.2 x10^3/uL (4.8-10.8)
[2018-04-26 18:05] LABS: BASOPHILS # (AUTO) 0.1 10^3/uL (0.0-0.1); BASOPHILS % (AUTO) 0.8 %; EOSINOPHILS # (AUTO) 0.1 10^3/uL (0.0-0.7); EOSINOPHILS % (AUTO) 2.1 %; HGB - HEMOGLOBIN 8.8 g/dL (14.0-18.0); LYMPHOCYTES # (AUTO) 1.2 10^3/uL (1.5-3.5); LYMPHOCYTES % (AUTO) 19.1 %; MEAN CORPUSCULAR HEMOGLOBIN 32.1 pg (27.0-31.0); MEAN CORPUSCULAR HGB CONC 34.4 g/dL (32.0-36.0); MEAN CORPUSCULAR VOLUME 93.2 fL (80.0-94.0); MEAN PLATELET VOLUME 7.4 fL (7.4-11.4); MONOCYTES # (AUTO) 0.4 10^3/uL (0.0-1.0); MONOCYTES % (AUTO) 5.6 %; NEUTROPHILS # (AUTO) 4.6 10^3/uL (1.5-6.6); NEUTROPHILS % (AUTO) 72.4 %; PLT - PLATELET COUNT 215 10^3/uL (130-450); RED BLOOD COUNT 2.74 10^6/uL (4.70-6.10); WHITE BLOOD COUNT 6.3 x10^3/uL (4.8-10.8)
[2018-04-26] MEDS: ZOLPIDEM 5 MG TABLET PO SCH (22:39)
[2018-04-27 00:26] LABS: MEAN CORPUSCULAR HGB CONC 34.6 g/dL (32.0-36.0); MEAN CORPUSCULAR VOLUME 92.7 fL (80.0-94.0); MEAN PLATELET VOLUME 7.6 fL (7.4-11.4); RED BLOOD COUNT 2.13 10^6/uL (4.70-6.10); RED CELL DISTRIBUTION WIDTH 13.9 % (12.0-15.0)
[2018-04-27 00:29] LABS: HGB - HEMOGLOBIN 6.8 g/dL (14.0-18.0)
[2018-04-27] MEDS ORDERED: ACETAMINOPHEN 325 MG TABLET PO ONE (00:31)
[2018-04-27] MEDS: CALCIUM CARBONATE CHEW 500 MG TABLET PO SCH ×4 (00:43→21:08)
[2018-04-27] MEDS ORDERED: diphenhydrAMINE 25 MG CAPSULE PO ONE (01:00)
[2018-04-27] MEDS ORDERED: SODIUM CHLORIDE 0.9% 500 ML IV ONE ×2 (01:12→05:41)
[2018-04-27] MEDS: SODIUM CHLORIDE FLUSH 0.9% 10 ML SYRINGE IVP SCH ×3 (01:49→15:26)
[2018-04-27] MEDS: SODIUM CHLORIDE FLUSH 0.9% 10 ML SYRINGE IVP PRN (05:28)
[2018-04-27] MEDS: PANTOPRAZOLE 40 MG VIAL IVP SCH (05:28)
[2018-04-27] MEDS: SODIUM CHLORIDE 0.9% 1,000 ML IV SCH (07:11)
[2018-04-27] MEDS: FLUoxetine 10 MG CAPSULE PO SCH (10:30)
[2018-04-27] MEDS: POLYETHYLENE GLYCOL 3350 17 GM PACKET PO SCH (10:31)
[2018-04-27 12:57] LABS: ALBUMIN 2.8 g/dL (3.2-5.5); ALBUMIN/GLOBULIN RATIO 1.6 (1.0-2.2); ALKALINE PHOSPHATASE 40 IU/L (42-121); ALT ALANINE AMINOTRANSFERASE 11 IU/L (10-60); AST ASPARTATE AMINOTRANSFERASE 20 IU/L (10-42); BILIRUBIN,TOTAL 0.8 mg/dL (0.2-1.0); BUN - BLOOD UREA NITROGEN 15 mg/dL (6-20); CALCIUM 7.7 mg/dL (8.5-10.3); CARBON DIOXIDE - CO2 22 mmol/L (21-32); CHLORIDE 108 mmol/L (101-111); CREATININE 0.9 mg/dL (0.6-1.2); GFR - MDRD 81 (>89); GLUCOSE 130 mg/dL (70-100); SODIUM 135 mmol/L (135-145); TOTAL PROTEIN 4.6 g/dL (6.7-8.2)
[2018-04-27 13:06] LABS: BASOPHILS % (AUTO) 0.4 %; EOSINOPHILS # (AUTO) 0.1 10^3/uL (0.0-0.7); EOSINOPHILS % (AUTO) 0.7 %; HGB - HEMOGLOBIN 9.2 g/dL (14.0-18.0); LYMPHOCYTES # (AUTO) 1.1 10^3/uL (1.5-3.5); MEAN CORPUSCULAR HEMOGLOBIN 32.2 pg (27.0-31.0); MEAN CORPUSCULAR HGB CONC 34.6 g/dL (32.0-36.0); MEAN CORPUSCULAR VOLUME 93.2 fL (80.0-94.0); MEAN PLATELET VOLUME 8.2 fL (7.4-11.4); MONOCYTES # (AUTO) 0.6 10^3/uL (0.0-1.0); MONOCYTES % (AUTO) 5.9 %; NEUTROPHILS # (AUTO) 7.9 10^3/uL (1.5-6.6); PLT - PLATELET COUNT 186 10^3/uL (130-450); RED BLOOD COUNT 2.87 10^6/uL (4.70-6.10); VBG PH 7.336 (7.31-7.41); WHITE BLOOD COUNT 9.7 x10^3/uL (4.8-10.8)
--- NOTE | 2018-04-27 15:33 | PROVIDER PROGRESS NOTE ---
Assessment/Plan - Problem List (1) GI bleed Qualifiers: GI bleed type/associated pathology: unspecified gastrointestinal hemorrhage type Qualified Code(s): K92.2 - Gastrointestinal hemorrhage, unspecified Assessment/Plan: Patient had multiple bloody bowel movements yesterday including one last night with 800 cc of bright red blood and another with dark blood 300 cc early this morning. Patient's hemoglobin was down to 6.8 this morning from 8.8 yesterday evening. Patient will be transfused 3 units of packed RBCs this morning Surgery was consulted and will do colonoscopy in the morning Patient placed on clear liquid diet Colonoscopy prep this evening N.p.o. after midnight Surgery recommended transfer to a center with angiography and ability to do embolization if patient continues to have severe bleeding. Protonix 40 mg IV BID (2) Acute post-hemorrhagic anemia Assessment/Plan: Patient's hemoglobin down to 6.8 this morning secondary to ongoing GI bleed. Patient will be transfused 3 units of packed RBCs Monitor hemoglobin (3) Iliac artery aneurysm Assessment/Plan: Stable. (4) Alcohol abuse Assessment/Plan: Pt told the admitting MD that he does not feel he has a alcoholism problem, has never had DT Patient is on CIWA as yesterday the hospitalist on-call was concerned about possible withdrawal symptoms. Patient does not appear to be having withdrawal at this time. We will discontinue CIWA (5) Hyperlipidemia Assessment/Plan: Patient has a history of hyperlipidemia and takes simvastatin at home. Patient is currently stable and will continue with his home medications once he is improved from the GI bleed. (6) Depression Assessment/Plan: Patient is a history of depression and uses Prozac at home. Patient's mood is stable and his Prozac has been continued. We will continue his home Prozac while he is hospitalized per - Current Meds Current Meds: Current Medications Generic Name Dose Route Start Last Admin Trade Name Freq PRN Reason Stop Dose Admin Calcium Carbonate/Glycine 500 mg 04/26/18 23:00 04/27/18 13:26 Tums PO 500 mg TID JEFFY Administration Fluoxetine HCl 20 mg 04/25/18 09:00 04/27/18 10:30 Prozac PO 20 mg DAILY JEFFY Administration Sodium Chloride 1,000 mls @ 40 mls/hr 04/26/18 11:34 04/27/18 07:11 Normal Saline 0.9% IV 40 mls/hr .Q25H JEFFY Administration Pantoprazole Sodium 40 mg 04/25/18 07:00 04/27/18 05:28 Protonix IVP 40 mg QDAC JEFFY Administration Polyethylene Glycol 17 gm 04/25/18 09:00 04/27/18 10:31 Miralax PO Not Given DAILY JEFFY Sodium Chloride 10 ml 04/25/18 00:42 04/27/18 05:28 Normal Saline Flush 0.9% IVP 10 ml PRN PRN Administration NEEDED PER PROVIDER ORDERS Sodium Chloride 10 ml 04/25/18 01:00 04/27/18 11:52 Normal Saline Flush 0.9% IVP 10 ml 0100,0900,1700 JEFFY Administration Zolpidem Tartrate 10 mg 04/25/18 21:00 04/26/18 22:39 Ambien PO 10 mg HS JEFFY Administration - Lab Result Lab results reviewed: Yes Fish Bone Diagrams: 04/27/18 12:38 04/27/18 12:38 - Diagnostic Imaging Results Diagnostic Imaging Results: Final report reviewed - Additional Planning Condition/Complexity: Guarded My Orders: My Active Orders 04/27/18 General Surgery Consult [CONS] Routine 04/27/18 18:00 Sodium/Potassium/Mag Sulfates [Suprep Bowel Prep Kit] 177 ml PO 1800,0500 04/27/18 Lunch Clear Liquid Diet [DIET] 04/28/18 00:01 NPO except Meds at Midnight [DIET] 04/28/18 05:00 CMP, RFLX TO IONIZED CA IF [CHEM] DAILYLAB 04/29/18 05:00 CMP, RFLX TO IONIZED CA IF [CHEM] DAILYLAB 04/30/18 05:00 CMP, RFLX TO IONIZED CA IF [CHEM] DAILYLAB Consult/Specialty: Surgery Plan Discussed with:: Patient Time Spent: 31-60 minutes Subjective - Subjective Patient Reports: Other (Patient continuing to have bloody bowel movements. Had 2 large bloody bowel movements last night. Patient does feel slightly dizzy. He is very eager to go home as he states he has a lot of work to do. It was explained to him that given his ongoing bleeding and drop in his hemoglobin it is not in his best interest to go home. Patient denies any chest pain or shortness of breath.) Nursing Reports: No Complaints Objective Vital Signs: Vital Signs - 24 hr 04/26/18 04/26/18 04/26/18 15:45 17:45 20:00 Temperature 36.3 C L 36.2 C L 36.5 C Heart Rate Heart Rate [ 83 82 66 Brachial] Respiratory 18 18 18 Rate Blood Pressure Blood Pressure 116/85 H 107/61 103/58 L [Left Brachial artery] Blood Pressure [Right Brachial artery] O2 Saturation 100 96 98 04/26/18 04/26/18 04/26/18 21:34 21:55 22:23 Temperature Heart Rate Heart Rate [ Brachial] Respiratory Rate Blood Pressure Blood Pressure 112/62 101/82 H 119/70 [Left Brachial artery] Blood Pressure [Right Brachial artery] O2 Saturation 04/27/18 04/27/18 04/27/18 01:50 02:20 02:33 Temperature 36.4 C L 36.4 C L 36.5 C Heart Rate 66 66 Heart Rate [ 73 Brachial] Respiratory 17 17 18 Rate Blood Pressure 98/57 L 91/53 L Blood Pressure 92/52 L [Left Brachial artery] Blood Pressure [Right Brachial artery] O2 Saturation 96 04/27/18 04/27/18 04/27/18 02:40 05:22 05:54 Temperature 36.6 C 36.5 C 36.3 C L Heart Rate 66 65 Heart Rate [ 66 Brachial] Respiratory 17 17 18 Rate Blood Pressure 96/55 L 93/46 L Blood Pressure 105/61 [Left Brachial artery] Blood Pressure [Right Brachial artery] O2 Saturation 95 04/27/18 04/27/18 04/27/18 05:59 06:10 06:18 Temperature 36.3 C L 36.6 C 36.6 C Heart Rate 62 70 65 Heart Rate [ Brachial] Respiratory 17 18 18 Rate Blood Pressure 105/61 111/66 90/52 L Blood Pressure [Left Brachial artery] Blood Pressure [Right Brachial artery] O2 Saturation 04/27/18 04/27/18 04/27/18 06:19 07:27 08:46 Temperature 36.6 C 36.5 C Heart Rate 59 L Heart Rate [ 65 68 Brachial] Respiratory 17 16 18 Rate Blood Pressure 115/72 Blood Pressure 93/54 L 99/63 [Left Brachial artery] Blood Pressure [Right Brachial artery] O2 Saturation 95 99 04/27/18 04/27/18 04/27/18 09:08 09:12 09:31 Temperature 36.5 C 36.5 C 36.4 C L Heart Rate 81 66 Heart Rate [ 81 Brachial] Respiratory 18 18 18 Rate Blood Pressure 115/72 114/64 Blood Pressure 115/72 [Left Brachial artery] Blood Pressure [Right Brachial artery] O2 Saturation 96 04/27/18 04/27/18 11:49 12:08 Temperature 36.5 C 36.9 C Heart Rate Heart Rate [ 70 93 Brachial] Respiratory 20 Rate Blood Pressure Blood Pressure [Left Brachial artery] Blood Pressure 110/69 100/88 H [Right Brachial artery] O2 Saturation 100 Oxygen O2 Source Room air I&O (Last 24 Hrs): Intake and Output Totals x24h 04/25/18 04/26/18 04/27/18 23:59 23:59 23:59 Intake Total 6414.000 3161 3058.333 Output Total 300 1575 950 Balance 6114.000 1586 2108.333 General: Alert, Oriented x3, Cooperative, No acute distress HEENT: Atraumatic, PERRLA, EOMI, Mucous membr. moist/pink, Other ([place]) Neck: Supple, No JVD, No thyromegaly, +2 carotid pulse wo bruit, No LAD Lymphatic: no adenopathy Neuro: Alert, Non Focal, CN 2-12 Grossly Intact, Oriented Times 3 Cardiovascular: Regular rate, Normal S1, Normal S2, No murmurs Respiratory: Chest non-tender, No respiratory distress, Breath sounds nml, Wheezes Abdomen: Normal bowel sounds, Soft, No tenderness, No hepatospenomegaly Extremities: No clubbing, No cyanosis, No edema, Normal pulses Skin: No rashes, No breakdown - Results Results: Laboratory Results WBC 9.7 x10^3/uL (4.8-10.8) 04/27/18 12:38 RBC 2.87 10^6/uL (4.70-6.10) L 04/27/18 12:38 Hgb 9.2 g/dL (14.0-18.0) L 04/27/18 12:38 Hct 26.8 % (42.0-52.0) L 04/27/18 12:38 MCV 93.2 fL (80.0-94.0) 04/27/18 12:38 MCH 32.2 pg (27.0-31.0) H 04/27/18 12:38 MCHC 34.6 g/dL (32.0-36.0) 04/27/18 12:38 RDW 14.0 % (12.0-15.0) 04/27/18 12:38 Plt Count 186 10^3/uL (130-450) 04/27/18 12:38 MPV 8.2 fL (7.4-11.4) 04/27/18 12:38 Neut # (Auto) 7.9 10^3/uL (1.5-6.6) H 04/27/18 12:38 Lymph # (Auto) 1.1 10^3/uL (1.5-3.5) L 04/27/18 12:38 [place] # (Auto) 0.6 10^3/uL (0.0-1.0) 04/27/18 12:38 Eos # (Auto) 0.1 10^3/uL (0.0-0.7) 04/27/18 12:38 Baso # (Auto) 0.0 10^3/uL (0.0-0.1) 04/27/18 12:38 Absolute Nucleated RBC 0.00 x10^3/uL 04/27/18 12:38 Nucleated RBC % 0.0 /100WBC 04/27/18 12:38 PT 12.2 secs (9.9-12.6) 04/24/18 22:15 INR 1.1 (0.8-1.2) 04/24/18 22:15 APTT 20.6 secs (24.9-33.3) L 04/24/18 22:15 VBG pH 7.336 (7.31-7.41) 04/27/18 12:38 Ionized Calcium 1.10 mmol/L (1.15-1.33) L 04/27/18 12:38 Sodium 135 mmol/L (135-145) 04/27/18 12:38 Potassium 3.4 mmol/L (3.5-5.0) L 04/27/18 12:38 Chloride 108 mmol/L (101-111) 04/27/18 12:38 Carbon Dioxide 22 mmol/L (21-32) 04/27/18 12:38 Anion Gap 5.0 (6-13) L 04/27/18 12:38 BUN 15 mg/dL (6-20) 04/27/18 12:38 Creatinine 0.9 mg/dL (0.6-1.2) 04/27/18 12:38 Estimated GFR (MDRD) 81 (>89) L 04/27/18 12:38 Glucose 130 mg/dL (70-100) H 04/27/18 12:38 Calcium 7.7 mg/dL (8.5-10.3) L 04/27/18 12:38 Ionized Calcium YES 04/27/18 12:38 Total Bilirubin 0.8 mg/dL (0.2-1.0) 04/27/18 12:38 AST 20 IU/L (10-42) 04/27/18 12:38 ALT 11 IU/L (10-60) 04/27/18 12:38 Alkaline Phosphatase 40 IU/L (42-121) L 04/27/18 12:38 Troponin I 0.04 ng/mL (<0.49) 04/24/18 22:15 Total Protein 4.6 g/dL (6.7-8.2) L 04/27/18 12:38 Albumin 2.8 g/dL (3.2-5.5) L 04/27/18 12:38 Globulin 1.8 g/dL (2.1-4.2) L 04/27/18 12:38 Albumin/Globulin Ratio 1.6 (1.0-2.2) 04/27/18 12:38 Lipase 23 U/L (22-51) 04/24/18 22:15 Urine Color YELLOW 04/25/18 00:12 Urine Clarity CLEAR (CLEAR) 04/25/18 00:12 Urine pH 6.0 PH (5.0-7.5) 04/25/18 00:12 Ur Specific [place] 1.025 (1.002-1.030) 04/25/18 00:12 Urine Protein NEGATIVE mg/dL (NEGATIVE) 04/25/18 00:12 Urine Glucose (UA) NEGATIVE mg/dL (NEGATIVE) 04/25/18 00:12 Urine Ketones 15 mg/dL (NEGATIVE) H 04/25/18 00:12 Urine Occult Blood NEGATIVE (NEGATIVE) 04/25/18 00:12 Urine Nitrite NEGATIVE (NEGATIVE) 04/25/18 00:12 Urine Bilirubin NEGATIVE (NEGATIVE) 04/25/18 00:12 Urine Urobilinogen 0.2 (NORMAL) E.U./dL (NORMAL) 04/25/18 00:12 Ur Leukocyte Esterase NEGATIVE (NEGATIVE) 04/25/18 00:12 Ur Microscopic Review NOT INDICATED 04/25/18 00:12 Urine Culture Comments NOT INDICATED 04/25/18 00:12 Ethyl Alcohol < 5.0 mg/dL 04/24/18 22:15 Blood Type A POSITIVE 04/27/18 00:35 Antibody Screen NEGATIVE 04/27/18 00:35 Crossmatch IS Only See Detail 04/27/18 00:35 - Procedures Procedures: Procedures LAPAROSCOPIC REPAIR INDIRECT INGUINAL HERNIA W GRAFT OR PROS (12/27/12) ABX Reporting Has patient been on IV antibiotics over the past 48 hours?: No Current Medications - Current Medications Current Medications: Active Medications Generic Name Dose Route Start Last Admin Trade Name Freq PRN Reason Stop Dose Admin Calcium Carbonate/Glycine 500 mg 04/26/18 23:00 04/27/18 13:26 Tums PO 500 mg TID JEFFY Administration Fluoxetine HCl 20 mg 04/25/18 09:00 04/27/18 10:30 Prozac PO 20 mg DAILY JEFFY Administration Sodium Chloride 1,000 mls @ 40 mls/hr 04/26/18 11:34 04/27/18 07:11 Normal Saline 0.9% IV 40 mls/hr .Q25H JEFFY Administration Ondansetron HCl 4 mg 04/25/18 00:42 Zofran Inj IVP Q6HR PRN Nausea / Vomiting Pantoprazole Sodium 40 mg 04/25/18 07:00 04/27/18 05:28 Protonix IVP 40 mg QDAC JEFFY Administration Polyethylene Glycol 17 gm 04/25/18 09:00 04/27/18 10:31 Miralax PO Not Given DAILY JEFFY Prochlorperazine Edisylate 10 mg 04/25/18 00:42 Compazine Inj IVP Q6HR PRN Nausea / Vomiting Sodium Chloride 10 ml 04/25/18 00:42 04/27/18 05:28 Normal Saline Flush 0.9% IVP 10 ml PRN PRN Administration NEEDED PER PROVIDER ORDERS Sodium Chloride 10 ml 04/25/18 01:00 04/27/18 15:26 Normal Saline Flush 0.9% IVP Not Given 0100,0900,1700 JEFFY Sodium Sulfate/Potass Sulf/Mag Sulf 177 ml 04/27/18 18:00 Suprep Bowel Prep Kit PO 04/28/18 05:01 1800,0500 JEFFY Zolpidem Tartrate 10 mg 04/25/18 21:00 04/26/18 22:39 Ambien PO 10 mg HS JEFFY Administration FLUoxetine [PROzac] 20 mg PO DAILY 12/23/12 Ranitidine HCl [Acid Control] 150 mg PO QPM 12/23/12 Zolpidem [Ambien] 5 mg PO QPM PRN 12/23/12 Simvastatin 10 mg PO QPM 04/24/18 Multivitamin [Theragran] 1 each PO DAILY 04/25/18 Sildenafil Citrate [Sildenafil] 20 - 40 mg PO ONCE PRN 04/25/18
[2018-04-27] MEDS: SODIUM/POTASSIUM/MAG SULFATES 354 ML PREP KIT PO SCH (17:47)
--- NOTE | 2018-04-27 18:04 | CONSULTATION NOTE ---
Referring Provider Name of Referring Provider:: Dr. Morgan Sierra Consult Date: 04/27/18 Chief Complaint - Chief Complaint Chief Complaint: Recurrent rectal bleeding History of Present Illness - Admitted From Admitted From:: [facility] - History Obtained From Records Reviewed: Yes History obtained from: Patient and chart Exam Limitations: None - History of Present Illness HPI Comment/Other: Dr. Bonlila asked that I see this very pleasant 78-year-old male for rectal bleeding requiring transfusion. Of note the patient has had these symptoms previously. It is gotten to the point where he has had part of his left colon removed for bleeding. He has had numerous admissions and transfusions for this. There is no abdominal pain. There is no indication that he has any coagulopathy. The blood is described as quite red and profuse when it does occur. It spontaneously stops. To my knowledge he has never had an angiographic study to determine where he is bleeding from. Of note, he is very goal-directed wants to get out of the hospital as quickly as possible as he is still working and has work to do. History - Past Medical History Cardiovascular: reports: High cholesterol, Other Respiratory: reports: Sleep apnea Endocrine/Autoimmune: reports: None GI: reports: GERD, GI bleed, Ulcers, Hiatal hernia, Colon polyps, Diverticulitis : reports: Nocturia, Frequency, Other HEENT: reports: Chronic hearing loss Psych: reports: Depression Musculoskeletal: reports: Osteoarthritis, Other (Fall with right knee pain January 2018.Carpal tunnel syndrome.) Derm: reports: None MRSA Hx?: No Other Past Medical History: occasional incontinence when drinking lot of alcohol - Past Surgical History General: reports: Hiatal hernia repair, Other Cardiovascular: reports: AAA Other past surgical history: prostatectomy - Family & Social History Family History Comment/Other: Dad: at 77 of complications of alcoholism and smoking. Mom:Had severe depression and of suicide. Siblings:One half brother who he is not in contact with for the last 2 years because they had a fight. Is morbidly obese but does not know anything else about his medical history. Children: 5 Children. All 5 are on antidepressants. Two are alcoholics. To his knowledge no one has cancer, heart attack, stroke, diabetes, thyroid disease. Living arrangement: At home Living Situation: Alone Social History Notes: He was born in [place]. Came out to the [facility] when he was 16 because his dad moved. He has been and 4 times. 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 He smoked socially in the 1960s and did it only when he went out at night. Maybe 2-3 cigarettes a night at a time. Quit smoking in the . Alcohol is a glass of wine, up to 2 a night. Last night was 5. He lives alone. Again broke up with his last girlfriend last night. He denies recreational substance abuse. States that he is still able to do his activities of daily living and can drive a car, clean his house, pay the bills. Does not need a cane or walker. - Substance History Use: Uses substance without health or social issues: Alcohol Abuse: Recurrent use of substance despite neg consequences: NONE Dependence: Experiences withdrawal or developed tolerances: NONE - POLST Patient has POLST: No POLST Status: Full Code (He states that he has never been asked before about his advanced directives or CODE STATUS. He is startled about the question I explained to him that it is a fairly routine question we ask and people who were in the hospital, especially if they are over 55. He says that he will have to think about what he defines as a quality of life to then make himself DNR.) Meds/Allgy - Home Medications Home Medications: Ambulatory Orders Medication Instructions Recorded Confirmed FLUoxetine [PROzac] 20 mg PO DAILY 12/23/12 04/25/18 Ranitidine HCl [Acid Control] 150 mg PO QPM 12/23/12 04/25/18 Zolpidem [Ambien] 5 mg PO QPM PRN 12/23/12 04/25/18 Simvastatin 10 mg PO QPM 04/24/18 04/25/18 Multivitamin [Theragran] 1 each PO DAILY 04/25/18 04/25/18 Sildenafil Citrate [Sildenafil] 20 - 40 mg PO ONCE PRN 04/25/18 04/25/18 - Allergies Allergies/Adverse Reactions: Allergies Allergy/AdvReac Type Severity Reaction Status Date / Time No Known Drug Allergies Allergy Verified 04/24/18 22:09 Exam - Vital Signs Vital Signs: Vital Signs x48h Temp Pulse Resp BP Pulse Ox 04/27/18 16:02 36.3 C L 74 18 99/67 100 04/27/18 12:08 36.9 C 93 20 100/88 H 100 04/27/18 11:49 36.5 C 70 110/69 Conclusion/Plan - Diagnosis Diagnosis: Recurrent rectal bleeding - Plan Plan: Colonoscopy with possible biopsies and/or polypectomies. Indications, procedure, alternatives (such as barium enema, Cologuard and even no procedure at all) and risks including but not limited to perforation requiring operative repair, bleeding with its risks, and were fully explained to him. I michael diagrams explaining the colonic anatomy and the proposed procedure and handed it to him. Conscious sedation was discussed at length with him as were its risks including but not limited to loss of airway, aspiration, respiratory depression, and not enough relief of pain and anxiety and he indicated that he wished to h ave conscious sedation for his procedure. I explained that MAC anesthesia is associated with a higher incidence of colon perforation. Review of his history does not reveal any significant systemic disease that would contraindicate use of conscious sedation or MAC anesthesia. All questions were fully answered. Verbal and written consent was obtained. The patient in preparation for his colonoscopy will be n.p.o. and his colon will be mechanically prepped. 45 minutes of [id number] time spent with the patient the majority of which was spent in discussion - Lab Results Lab results reviewed: Yes Eldon Bones: 04/28/18 12:05 04/28/18 05:34
[2018-04-27] MEDS: ZOLPIDEM 5 MG TABLET PO SCH (21:08)
[2018-04-28] MEDS: SODIUM CHLORIDE FLUSH 0.9% 10 ML SYRINGE IVP SCH ×3 (00:15→15:37)
[2018-04-28] MEDS: SODIUM/POTASSIUM/MAG SULFATES 354 ML PREP KIT PO SCH (05:41)
[2018-04-28] MEDS: PANTOPRAZOLE 40 MG VIAL IVP SCH (05:42)
[2018-04-28] MEDS: CALCIUM CARBONATE CHEW 500 MG TABLET PO SCH ×2 (05:43→15:36)
[2018-04-28] MEDS: SODIUM CHLORIDE FLUSH 0.9% 10 ML SYRINGE IVP PRN (05:43)
[2018-04-28] MEDS: SODIUM CHLORIDE 0.9% 1,000 ML IV SCH (05:55)
[2018-04-28 05:59] LABS: EOSINOPHILS # (AUTO) 0.2 10^3/uL (0.0-0.7); HGB - HEMOGLOBIN 7.9 g/dL (14.0-18.0); LYMPHOCYTES # (AUTO) 0.8 10^3/uL (1.5-3.5); LYMPHOCYTES % (AUTO) 19.9 %; MEAN CORPUSCULAR HEMOGLOBIN 31.7 pg (27.0-31.0); MEAN CORPUSCULAR HGB CONC 34.4 g/dL (32.0-36.0); MEAN CORPUSCULAR VOLUME 92.3 fL (80.0-94.0); MEAN PLATELET VOLUME 7.8 fL (7.4-11.4); MONOCYTES # (AUTO) 0.4 10^3/uL (0.0-1.0); MONOCYTES % (AUTO) 8.4 %; NEUTROPHILS # (AUTO) 2.8 10^3/uL (1.5-6.6); NEUTROPHILS % (AUTO) 66.7 %; PLT - PLATELET COUNT 183 10^3/uL (130-450); RED BLOOD COUNT 2.48 10^6/uL (4.70-6.10); RED CELL DISTRIBUTION WIDTH 14.1 % (12.0-15.0); WHITE BLOOD COUNT 4.3 x10^3/uL (4.8-10.8)
[2018-04-28 06:11] LABS: ALBUMIN 2.7 g/dL (3.2-5.5); ALBUMIN/GLOBULIN RATIO 1.5 (1.0-2.2); ALKALINE PHOSPHATASE 37 IU/L (42-121); ALT ALANINE AMINOTRANSFERASE 10 IU/L (10-60); AST ASPARTATE AMINOTRANSFERASE 13 IU/L (10-42); BILIRUBIN,TOTAL 0.5 mg/dL (0.2-1.0); BUN - BLOOD UREA NITROGEN 12 mg/dL (6-20); CALCIUM 7.8 mg/dL (8.5-10.3); CARBON DIOXIDE - CO2 24 mmol/L (21-32); CHLORIDE 110 mmol/L (101-111); CREATININE 0.8 mg/dL (0.6-1.2); GFR - MDRD 93 (>89); GLUCOSE 106 mg/dL (70-100); SODIUM 139 mmol/L (135-145); TOTAL PROTEIN 4.5 g/dL (6.7-8.2)
[2018-04-28 06:28] LABS: VBG PH 7.406 (7.31-7.41)
[2018-04-28] MEDS: POTASSIUM CHLOR 10 MEQ/100 ML 10 MEQ/100 ML BAG IV SCH ×2 (08:02→09:28)
[2018-04-28] MEDS: FLUoxetine 10 MG CAPSULE PO SCH (09:28)
[2018-04-28] MEDS: POLYETHYLENE GLYCOL 3350 17 GM PACKET PO SCH (09:29)
--- NOTE | 2018-04-28 11:40 | ANESTHESIA ---
Pre-Anesthesia VS, & Labs - Diagnosis Diagnosis Recurrent rectal bleeding GI Bleed - Procedure Colonoscopy Vital Signs: Temp Pulse Resp BP Pulse Ox 36.5 C 73 20 133/81 H 99 04/28/18 07:43 04/28/18 07:43 04/28/18 07:43 04/28/18 07:43 04/28/18 07:43 Height 5 ft 8 in Weight (kg) 78 kg Body Mass Index 26.1 - NPO Last Fluid Intake: 0500 suprep - Lab Results Current Lab Results: Laboratory Tests 04/28/18 05:34: VBG pH 7.406, Ionized Calcium 1.10 L 04/28/18 05:34: WBC 4.3 L, RBC 2.48 L, Hgb 7.9 L, Hct 22.9 L, MCV 92.3, MCH 31.7 H, MCHC 34.4, RDW 14.1, Plt Count 183, MPV 7.8, Neut # (Auto) 2.8, Lymph # (Auto) 0.8 L, Lee # (Auto) 0.4, Eos # (Auto) 0.2, Baso # (Auto) 0.0, Absolute Nucleated RBC 0.00, Nucleated RBC % 0.1 04/28/18 05:34: Ionized Calcium YES, Sodium 139, Potassium 3.3 L, Chloride 110, Carbon Dioxide 24, Anion Gap 5.0 L, BUN 12, Creatinine 0.8, Estimated GFR (MDRD) 93, Glucose 106 H, Calcium 7.8 L, Total Bilirubin 0.5, AST 13, ALT 10, Alkaline Phosphatase 37 L, Total Protein 4.5 L, Albumin 2.7 L, Globulin 1.8 L, Albumin/Globulin Ratio 1.5 04/27/18 12:38: VBG pH 7.336, Ionized Calcium 1.10 L 04/27/18 12:38: WBC 9.7, RBC 2.87 L, Hgb 9.2 L, Hct 26.8 L, MCV 93.2, MCH 32.2 H , MCHC 34.6, RDW 14.0, Plt Count 186, MPV 8.2, Neut # (Auto) 7.9 H, Lymph # (Auto) 1.1 L, Lee # (Auto) 0.6, Eos # (Auto) 0.1, Baso # (Auto) 0.0, Absolute Nucleated RBC 0.00, Nucleated RBC % 0.0 04/27/18 12:38: Ionized Calcium YES, Sodium 135, Potassium 3.4 L, Chloride 108, Carbon Dioxide 22, Anion Gap 5.0 L, BUN 15, Creatinine 0.9, Estimated GFR (MDRD) 81 L, Glucose 130 H, Calcium 7.7 L, Total Bilirubin 0.8, AST 20, ALT 11, Alkaline Phosphatase 40 L, Total Protein 4.6 L, Albumin 2.8 L, Globulin 1.8 L, Albumin/Globulin Ratio 1.6 04/27/18 00:35: Blood Type A POSITIVE, Antibody Screen NEGATIVE, Crossmatch IS Only See Detail 04/27/18 00:15: WBC 9.0, RBC 2.13 L, Hgb 6.8 L*, Hct 19.7 L*, MCV 92.7, MCH 32.0 H, MCHC 34.6, RDW 13.9, Plt Count 181, MPV 7.6 04/26/18 18:00: WBC 6.3, RBC 2.74 L, Hgb 8.8 L, Hct 25.6 L, MCV 93.2, MCH 32.1 H , MCHC 34.4, RDW 14.0, Plt Count 215, MPV 7.4, Neut # (Auto) 4.6, Lymph # (Auto) 1.2 L, Lee # (Auto) 0.4, Eos # (Auto) 0.1, Baso # (Auto) 0.1, Absolute Nucleated RBC 0.00, Nucleated RBC % 0.0 04/26/18 12:05: WBC 5.2, RBC 2.73 L, Hgb 8.6 L, Hct 25.1 L, MCV 92.0, MCH 31.5 H , MCHC 34.2, RDW 13.9, Plt Count 207, MPV 7.6, Neut # (Auto) 3.9, Lymph # (Auto) 0.8 L, Lee # (Auto) 0.3, Eos # (Auto) 0.1, Baso # (Auto) 0.0, Absolute Nucleated RBC 0.00, Nucleated RBC % 0.0 04/26/18 04:50: WBC 4.4 L, RBC 2.63 L, Hgb 8.2 L, Hct 24.4 L, MCV 92.8, MCH 31.0, MCHC 33.4, RDW 13.9, Plt Count 201, MPV 8.0 04/26/18 04:50: VBG pH 7.374, Ionized Calcium 1.12 L 04/26/18 04:50: Ionized Calcium YES, Sodium 138, Potassium 3.7, Chloride 111, Carbon Dioxide 23, Anion Gap 4.0 L, BUN 11, Creatinine 0.8, Estimated GFR (MDRD) 93, Glucose 102 H, Calcium 7.7 L, Total Bilirubin 0.6, AST 13, ALT 10, Alkaline Phosphatase 38 L, Total Protein 4.4 L, Albumin 2.7 L, Globulin 1.7 L, Albumin/Globulin Ratio 1.6 04/25/18 21:00: Hgb 8.9 L 04/25/18 17:08: Hgb 9.9 L 04/25/18 13:15: Hgb 10.0 L 04/25/18 09:00: Hgb 10.0 L 04/25/18 05:08: Sodium 139, Potassium 3.8, Chloride 111, Carbon Dioxide 22, Anion Gap 6.0, BUN 16, Creatinine 0.7, Estimated GFR (MDRD) 109, Glucose 114 H, Calcium 7.9 L 04/24/18 22:15: Blood Type A POSITIVE, Antibody Screen NEGATIVE 04/24/18 22:15: Troponin I 0.04 04/24/18 22:15: Sodium 139, Potassium 3.7, Chloride 108, Carbon Dioxide 24, Anion Gap 7.0, BUN 17, Creatinine 1.1, Estimated GFR (MDRD) 65 L, Glucose 149 H, Calcium 8.1 L, Total Bilirubin 0.5, AST 16, ALT 24, Alkaline Phosphatase 38 L, Total Protein 4.9 L, Albumin 3.0 L, Globulin 1.9 L, Albumin/Globulin Ratio 1.6, Lipase 23, Ethyl Alcohol < 5.0 04/24/18 22:15: PT 12.2, INR 1.1, APTT 20.6 L 04/24/18 22:15: WBC 11.2 H, RBC 3.54 L, Hgb 11.3 L, Hct 32.7 L, MCV 92.3, MCH 32.0 H, MCHC 34.7, RDW 13.8, Plt Count 254, MPV 7.5, Neut # (Auto) 9.6 H, Lymph # (Auto) 0.9 L, Lee # (Auto) 0.5, Eos # (Auto) 0.1, Baso # (Auto) 0.0, Absolute Nucleated RBC 0.00, Nucleated RBC % 0.0 Fish Bones: 04/28/18 12:05 04/28/18 05:34 Home Medications and Allergies Home Medications: Ambulatory Orders Medication Instructions Recorded Confirmed FLUoxetine [PROzac] 20 mg PO DAILY 12/23/12 04/25/18 Ranitidine HCl [Acid Control] 150 mg PO QPM 12/23/12 04/25/18 Zolpidem [Ambien] 5 mg PO QPM PRN 12/23/12 04/25/18 Simvastatin 10 mg PO QPM 04/24/18 04/25/18 Multivitamin [Theragran] 1 each PO DAILY 04/25/18 04/25/18 Sildenafil Citrate [Sildenafil] 20 - 40 mg PO ONCE PRN 04/25/18 04/25/18 Active Medications Calcium Carbonate/Glycine (Tums) 500 mg PO TID [facility] Last Admin: 04/28/18 05:43 Dose: 500 mg Fluoxetine HCl (Prozac) 20 mg PO DAILY [facility] Last Admin: 04/28/18 09:28 Dose: 20 mg Sodium Chloride (Normal Saline 0.9%) 1,000 mls @ 40 mls/hr IV .Q25H [facility] Last Admin: 04/28/18 05:55 Dose: 40 mls/hr Ondansetron HCl (Zofran Inj) 4 mg IVP Q6HR PRN PRN Reason: Nausea / Vomiting Pantoprazole Sodium (Protonix) 40 mg IVP QDAC [facility] Last Admin: 04/28/18 05:42 Dose: 40 mg Polyethylene Glycol (Miralax) 17 gm PO DAILY [facility] Last Admin: 04/28/18 09:29 Dose: Not Given Prochlorperazine Edisylate (Compazine Inj) 10 mg IVP Q6HR PRN PRN Reason: Nausea / Vomiting Sodium Chloride (Normal Saline Flush 0.9%) 10 ml IVP PRN PRN PRN Reason: NEEDED PER PROVIDER ORDERS Last Admin: 04/28/18 05:43 Dose: 10 ml Sodium Chloride (Normal Saline Flush 0.9%) 10 ml IVP 0100,0900,1700 [facility] Last Admin: 04/28/18 09:29 Dose: Not Given Zolpidem Tartrate (Ambien) 10 mg PO HS [facility] Last Admin: 04/27/18 21:08 Dose: 10 mg FLUoxetine [PROzac] 20 mg PO DAILY 12/23/12 Ranitidine HCl [Acid Control] 150 mg PO QPM 12/23/12 Zolpidem [Ambien] 5 mg PO QPM PRN 12/23/12 Simvastatin 10 mg PO QPM 04/24/18 Multivitamin [Theragran] 1 each PO DAILY 04/25/18 Sildenafil Citrate [Sildenafil] 20 - 40 mg PO ONCE PRN 04/25/18 Allergies/Adverse Reactions: Allergies Allergy/AdvReac Type Severity Reaction Status Date / Time No Known Drug Allergies Allergy Verified 04/24/18 22:09 Anes History & Medical History - Anesthetic History Anesthesia Complications: reports: No previous complications - Medical History Cardiovascular: reports: High cholesterol, Peripheral Vascular Disease Pulmonary: reports: Sleep apnea (does not use cpap) Gastrointestinal: reports: GERD, GI bleed, Ulcers, Hiatal hernia, Colon polyps, Diverticulitis Urinary: reports: Nocturia, Frequency, Other Neuro: reports: None Musculoskeletal: reports: Osteoarthritis, Other (Fall with right knee pain January 2018.Carpal tunnel syndrome.) Endocrine/Autoimmune: reports: None Blood Disorders: reports: Anemia Skin: reports: None Smoking Status: Former smoker Psychosocial: reports: Depression, Alcohol Other Past Medical History: occasional incontinence when drinking lot of alcohol - Surgical History General: Hiatal hernia repair, Other Cardiothoracic: AAA Urologic: Prostatic surgery Other Past Surgical History: prostatectomy Exam General: Alert, Oriented x3, Cooperative, No acute distress Dental: Poor dentition Mouth Openin Fingerbreadth Mallampati classification: III Thyromental Distance: 4-6 cm Respiratory: Lungs clear, Normal breath sounds, No respiratory distress, No accessory muscle use Cardiovascular: Regular rate, Normal S1, Normal S2, No murmurs Mental/Cognitive Status: Alert/Oriented X3, Normal for patient Cognitive Status: Within normal limits Plan Anesthesia Type: MAC Consent for Procedure(s) Verified and Reviewed: Yes Code Status: Attempt Resuscitation ASA classification: 3-Severe systemic disease Is this case an emergency?: No
[2018-04-28] MEDS ORDERED: A & D OINTMENT 5 GM PACKET TOP PRN (11:52)
[2018-04-28 12:16] LABS: HGB - HEMOGLOBIN 8.7 g/dL (14.0-18.0); MEAN CORPUSCULAR HGB CONC 34.6 g/dL (32.0-36.0); MEAN CORPUSCULAR VOLUME 92.6 fL (80.0-94.0); MEAN PLATELET VOLUME 7.6 fL (7.4-11.4); RED BLOOD COUNT 2.71 10^6/uL (4.70-6.10); RED CELL DISTRIBUTION WIDTH 14.2 % (12.0-15.0); WHITE BLOOD COUNT 6.4 x10^3/uL (4.8-10.8)
--- NOTE | 2018-04-28 12:24 | PROVIDER PROGRESS NOTE ---
Assessment/Plan - Problem List (1) GI bleed Qualifiers: GI bleed type/associated pathology: unspecified gastrointestinal hemorrhage type Qualified Code(s): K92.2 - Gastrointestinal hemorrhage, unspecified Assessment/Plan: Patient presented with BRBPR and had further episodes while hospitalized. Hb fell to 6.8. Patient will be transfused 3 units of packed RBCs Last night stools appear less bloody and Hb has only dropped minimally Surgery was consulted and will do colonoscopy today Patient NPO Surgery recommended transfer to a center with angiography and ability to do embolization if patient continues to have severe bleeding. Protonix 40 mg IV BID (2) Acute post-hemorrhagic anemia Assessment/Plan: Patient's hemoglobin stable today Patient will be transfused 3 units of packed RBCs Continue to monitor hb and monitor for bleeding (3) Iliac artery aneurysm Assessment/Plan: Stable. (4) Alcohol abuse Assessment/Plan: Patient has not had any signs or symptoms of withdrawal CIWA was discontinued yesterday Patient is not a daily drinker but does binge drink at times and is concerned about that and wants to change his habits (5) Hyperlipidemia Assessment/Plan: Patient has a history of hyperlipidemia and takes simvastatin at home. Patient is currently stable and will continue his home medications once he is improved from the GI bleed. (6) Depression Assessment/Plan: Patient is a history of depression and uses Prozac at home. Patient's mood is stable and his Prozac has been continued. We will continue his home Prozac while he is hospitalized - Current Meds Current Meds: Current Medications Generic Name Dose Route Start Last Admin Trade Name Sarah PRN Reason Stop Dose Admin Calcium Carbonate/Glycine 500 mg 04/26/18 23:00 04/28/18 05:43 Tums PO 500 mg TID JEFFY Administration Fluoxetine HCl 20 mg 04/25/18 09:00 04/28/18 09:28 Prozac PO 20 mg DAILY JEFFY Administration Sodium Chloride 1,000 mls @ 40 mls/hr 04/26/18 11:34 04/28/18 05:55 Normal Saline 0.9% IV 40 mls/hr .Q25H JEFFY Administration Pantoprazole Sodium 40 mg 04/25/18 07:00 04/28/18 05:42 Protonix IVP 40 mg QDAC JEFFY Administration Polyethylene Glycol 17 gm 04/25/18 09:00 04/28/18 09:29 Miralax PO Not Given DAILY JEFFY Sodium Chloride 10 ml 04/25/18 00:42 04/28/18 05:43 Normal Saline Flush 0.9% IVP 10 ml PRN PRN Administration NEEDED PER PROVIDER ORDERS Sodium Chloride 10 ml 04/25/18 01:00 04/28/18 09:29 Normal Saline Flush 0.9% IVP Not Given 0100,0900,1700 JEFFY Zolpidem Tartrate 10 mg 04/25/18 21:00 04/27/18 21:08 Ambien PO 10 mg HS JEFFY Administration - Lab Result Lab results reviewed: Yes Fish Bone Diagrams: 04/28/18 12:05 04/28/18 05:34 - Diagnostic Imaging Results Diagnostic Imaging Results: Final report reviewed - Additional Planning Condition/Complexity: Guarded My Orders: My Active Orders 04/28/18 00:01 NPO except Meds at Midnight [DIET] 04/28/18 11:52 A & D Ointment [Vitamin A & D Ointment] 1 applic TOP PRN PRN 04/29/18 05:00 CMP, RFLX TO IONIZED CA IF [CHEM] DAILYLAB 04/30/18 05:00 CMP, RFLX TO IONIZED CA IF [CHEM] DAILYLAB Consult/Specialty: Surgery Plan Discussed with:: Patient Time Spent: 31-60 minutes Subjective - Subjective Patient Reports: Feeling Better, Resting Comfortably, No Complaints, Other (Patient is anxious about going home soon. He says that his stools are less and less bloody and look more brown.) Nursing Reports: No Complaints Objective Vital Signs: Vital Signs - 24 hr 04/27/18 04/27/18 04/28/18 16:02 20:42 00:15 Temperature 36.3 C L 36.5 C 36.7 C Heart Rate [ 74 65 78 Brachial] Respiratory 18 18 16 Rate Blood Pressure 99/67 105/68 106/63 [Right Brachial artery] O2 Saturation 100 98 98 04/28/18 07:43 Temperature 36.5 C Heart Rate [ 73 Brachial] Respiratory 20 Rate Blood Pressure 133/81 H [Right Brachial artery] O2 Saturation 99 Oxygen O2 Source Room air I&O (Last 24 Hrs): Intake and Output Totals x24h 04/26/18 04/27/18 04/28/18 23:59 23:59 23:59 Intake Total 3161 3766.333 1240 Output Total 157 1750 1701 Balance 1586 7179.308 -839 General: Alert, Oriented x3, Cooperative, No acute distress HEENT: Atraumatic, PERRLA, EOMI, Mucous membr. moist/pink Neck: Supple, No JVD, No thyromegaly, +2 carotid pulse wo bruit, No LAD Lymphatic: no adenopathy Neuro: Alert, Non Focal, CN 2-12 Grossly Intact, Oriented Times 3 Cardiovascular: Regular rate, Normal S1, Normal S2, No murmurs Respiratory: Chest non-tender, No respiratory distress, Breath sounds nml Abdomen: Normal bowel sounds, Soft, No tenderness, No hepatospenomegaly Extremities: No clubbing, No cyanosis, No edema, Normal pulses, No tenderness/swelling Skin: No rashes, No breakdown - Results Results: Laboratory Results WBC 6.4 x10^3/uL (4.8-10.8) 04/28/18 12:05 RBC 2.71 10^6/uL (4.70-6.10) L 04/28/18 12:05 Hgb 8.7 g/dL (14.0-18.0) L 04/28/18 12:05 Hct 25.1 % (42.0-52.0) L 04/28/18 12:05 MCV 92.6 fL (80.0-94.0) 04/28/18 12:05 MCH 32.0 pg (27.0-31.0) H 04/28/18 12:05 MCHC 34.6 g/dL (32.0-36.0) 04/28/18 12:05 RDW 14.2 % (12.0-15.0) 04/28/18 12:05 Plt Count 216 10^3/uL (130-450) 04/28/18 12:05 MPV 7.6 fL (7.4-11.4) 04/28/18 12:05 Neut # (Auto) 2.8 10^3/uL (1.5-6.6) 04/28/18 05:34 Lymph # (Auto) 0.8 10^3/uL (1.5-3.5) L 04/28/18 05:34 [place] # (Auto) 0.4 10^3/uL (0.0-1.0) 04/28/18 05:34 Eos # (Auto) 0.2 10^3/uL (0.0-0.7) 04/28/18 05:34 Baso # (Auto) 0.0 10^3/uL (0.0-0.1) 04/28/18 05:34 Absolute Nucleated RBC 0.00 x10^3/uL 04/28/18 05:34 Nucleated RBC % 0.1 /100WBC 04/28/18 05:34 PT 12.2 secs (9.9-12.6) 04/24/18 22:15 INR 1.1 (0.8-1.2) 04/24/18 22:15 APTT 20.6 secs (24.9-33.3) L 04/24/18 22:15 VBG pH 7.406 (7.31-7.41) 04/28/18 05:34 Ionized Calcium 1.10 mmol/L (1.15-1.33) L 04/28/18 05:34 Sodium 139 mmol/L (135-145) 04/28/18 05:34 Potassium 3.3 mmol/L (3.5-5.0) L 04/28/18 05:34 Chloride 110 mmol/L (101-111) 04/28/18 05:34 Carbon Dioxide 24 mmol/L (21-32) 04/28/18 05:34 Anion Gap 5.0 (6-13) L 04/28/18 05:34 BUN 12 mg/dL (6-20) 04/28/18 05:34 Creatinine 0.8 mg/dL (0.6-1.2) 04/28/18 05:34 Estimated GFR (MDRD) 93 (>89) 04/28/18 05:34 Glucose 106 mg/dL (70-100) H 04/28/18 05:34 Calcium 7.8 mg/dL (8.5-10.3) L 04/28/18 05:34 Ionized Calcium YES 04/28/18 05:34 Total Bilirubin 0.5 mg/dL (0.2-1.0) 04/28/18 05:34 AST 13 IU/L (10-42) 04/28/18 05:34 ALT 10 IU/L (10-60) 04/28/18 05:34 Alkaline Phosphatase 37 IU/L (42-121) L 04/28/18 05:34 Troponin I 0.04 ng/mL (<0.49) 04/24/18 22:15 Total Protein 4.5 g/dL (6.7-8.2) L 04/28/18 05:34 Albumin 2.7 g/dL (3.2-5.5) L 04/28/18 05:34 Globulin 1.8 g/dL (2.1-4.2) L 04/28/18 05:34 Albumin/Globulin Ratio 1.5 (1.0-2.2) 04/28/18 05:34 Lipase 23 U/L (22-51) 04/24/18 22:15 Urine Color YELLOW 04/25/18 00:12 Urine Clarity CLEAR (CLEAR) 04/25/18 00:12 Urine pH 6.0 PH (5.0-7.5) 04/25/18 00:12 Ur Specific [place] 1.025 (1.002-1.030) 04/25/18 00:12 Urine Protein NEGATIVE mg/dL (NEGATIVE) 04/25/18 00:12 Urine Glucose (UA) NEGATIVE mg/dL (NEGATIVE) 04/25/18 00:12 Urine Ketones 15 mg/dL (NEGATIVE) H 04/25/18 00:12 Urine Occult Blood NEGATIVE (NEGATIVE) 04/25/18 00:12 Urine Nitrite NEGATIVE (NEGATIVE) 04/25/18 00:12 Urine Bilirubin NEGATIVE (NEGATIVE) 04/25/18 00:12 Urine Urobilinogen 0.2 (NORMAL) E.U./dL (NORMAL) 04/25/18 00:12 Ur Leukocyte Esterase NEGATIVE (NEGATIVE) 04/25/18 00:12 Ur Microscopic Review NOT INDICATED 04/25/18 00:12 Urine Culture Comments NOT INDICATED 04/25/18 00:12 Ethyl Alcohol < 5.0 mg/dL 04/24/18 22:15 Blood Type A POSITIVE 04/27/18 00:35 Antibody Screen NEGATIVE 04/27/18 00:35 Crossmatch IS Only See Detail 04/27/18 00:35 - Procedures Procedures: Procedures LAPAROSCOPIC REPAIR INDIRECT INGUINAL HERNIA W GRAFT OR PROS (12/27/12) ABX Reporting Has patient been on IV antibiotics over the past 48 hours?: No Current Medications - Current Medications Current Medications: Active Medications Generic Name Dose Route Start Last Admin Trade Name Freq PRN Reason Stop Dose Admin Calcium Carbonate/Glycine 500 mg 04/26/18 23:00 04/28/18 05:43 Tums PO 500 mg TID JEFFY Administration Fluoxetine HCl 20 mg 04/25/18 09:00 04/28/18 09:28 Prozac PO 20 mg DAILY JEFYF Administration Sodium Chloride 1,000 mls @ 40 mls/hr 04/26/18 11:34 04/28/18 05:55 Normal Saline 0.9% IV 40 mls/hr .Q25H JEFFY Administration Ondansetron HCl 4 mg 04/25/18 00:42 Zofran Inj IVP Q6HR PRN Nausea / Vomiting Pantoprazole Sodium 40 mg 04/25/18 07:00 04/28/18 05:42 Protonix IVP 40 mg QDAC JEFFY Administration Polyethylene Glycol 17 gm 04/25/18 09:00 04/28/18 09:29 Miralax PO Not Given DAILY [facility] Prochlorperazine Edisylate 10 mg 04/25/18 00:42 Compazine Inj IVP Q6HR PRN Nausea / Vomiting Sodium Chloride 10 ml 04/25/18 00:42 04/28/18 05:43 Normal Saline Flush 0.9% IVP 10 ml PRN PRN Administration NEEDED PER PROVIDER ORDERS Sodium Chloride 10 ml 04/25/18 01:00 04/28/18 09:29 Normal Saline Flush 0.9% IVP Not Given 0100,0900,1700 [facility] Vitamin A/Vitamin D 1 applic 04/28/18 11:52 Vitamin A & D Ointment TOP PRN PRN Skin Care Zolpidem Tartrate 10 mg 04/25/18 21:00 04/27/18 21:08 Ambien PO 10 mg HS JEFFY Administration FLUoxetine [PROzac] 20 mg PO DAILY 12/23/12 Ranitidine HCl [Acid Control] 150 mg PO QPM 12/23/12 Zolpidem [Ambien] 5 mg PO QPM PRN 12/23/12 Simvastatin 10 mg PO QPM 04/24/18 Multivitamin [Theragran] 1 each PO DAILY 04/25/18 Sildenafil Citrate [Sildenafil] 20 - 40 mg PO ONCE PRN 04/25/18
[2018-04-28] MEDS ORDERED: LACTATED RINGERS 1,000 ML IV ONE ×2 (16:13→16:34)
[2018-04-28] MEDS ORDERED: fentaNYL 100 MCG/2 ML VIAL IVP ONE (16:36)
[2018-04-28] MEDS ORDERED: PROPOFOL 200 MG/20 ML VIAL IVP ONE (16:36)
[2018-04-28 17:04] VITALS: BP 106/64
--- NOTE | 2018-04-28 17:23 | Discharge Plan ---
Discharge Plan Disposition: 01 Home, Self Care Condition: Fair Diet: Soft Activity Restrictions: Activity as Tolerated Shower Restrictions: No Driving Restrictions: No Weight Bearing: Full Weight Additional Instructions or Follow Up instructions: You presented to our emergency department with blood in your stool. You were monitored in our hospital for 3 nights and had further bleeding which could dropped your blood count. We had to transfuse you 2 units of blood. You underwent a colonoscopy with our general surgeon and were found to have a clean colon without any evidence of ongoing bleeding. You had no further bleeding and your blood count has remained stable for the last 24 hours. We are discharging you home to continue on your home medications. Likely you did have a diverticular bleed in these type of bleeds typically spontaneously stop. If you do have any further bleeding please do not hesitate to come back to the emergency department. No Smoking: If you smoke, Please STOP! Call for help. Follow-up with: Nelly Parsons ARNP [Primary Care Provider] -
--- NOTE | 2018-04-28 17:49 | DISCHARGE SUMMARY ---
Discharge Summary Admit Date: 04/25/18 Discharge Date: 04/28/18 Discharging Provider: Morgan Sierra MD Primary Care Provider: Nelly MILLER Code Status: Attempt Resuscitation Condition at Discharge: Fair Discharge Disposition: 01 Home, Self Care - DIAGNOSES Admission Diagnoses: 1. GI bleed 2. Acute posthemorrhagic anemia 3. Iliac artery aneurysm, right 4. Insomnia secondary to depression with anxiety 5. Alcohol abuse Discharge Diagnoses with Status of Each Condition: 1. GI bleed: Stable 2. Acute posthemorrhagic anemia: Stable 3. Iliac artery aneurysm, right: Stable 4. Alcohol abuse: Stable 5. Hyperlipidemia: Stable 6. Depression: Stable - HPI History of Present Illness: 78-year-old white male who presents with 4 episodes of bright red blood per rectum in the last day. This made him lightheaded and dizzy and he passed out. EMS reported that his systolic was 70 but when he was brought to our emergency room his systolic is been consistently above 100. 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 Previous hemoglobin April 2017 is 14.1. With today's visit to the emergency room it is now 11. He does have a history of lower GI bleeding and has had a left hemicolectomy because of it. In the past his hemoglobin has been as low as 7 when he needed transfusions. With his last GI bleed in September 2016 he dropped to 10 g of hemoglobin when he was seen at the [place] [facility]. With that visit he was sent home from the emergency room.He also has a history of prostate cancer with a prostatectomy But he did not get radiation. He has no history of radiation proctitis. He denies chest pain, shortness of breath. He is tired. He was last seen by his primary care provider in October 2017 when he was complaining of belching and acid reflux as well as fatigue. Although that Resulted in referral to the [facility], there is no record of what was done With that visit . He reports that he was told to take ranitidine twice a day as opposed to once a day.The patient admits that memory is starting to get to be a problem for him. He cannot remember some of the visits he has been to. I had to remind him that he been at [facility] in September 2016. I also had to remind him that he was at [facility] for an episode of GI bleeding and admission. He drinks 1-2 drinks a day but wonders if maybe he drinks more. He also states that last night he drank 4-5 drinks because he had a fight with his girlfriend and broke up with her. This is important to him because he associates alcohol intake with GI bleeding. - HOSPITAL COURSE Hospital Course: (1) GI bleed Patient presented with multiple episodes of BRBPR and had further episodes while hospitalized. Hb fell to 6.8 from baseline of 10.0 Patient was transfused 3 units of packed RBCs Patients Hb improved to 9.2 and remained stable at 8.7 with no further bleeding per rectum Patients stools appeared to be normal color by discharge Surgery was consulted and performed colonoscopy which showed a clean colon with no evidence of bleeding. Patient may have had a diverticular bleed or AVM from small bowel it is not clear. Surgery recommends transfer to a center with angiography and ability to do embolization as well as facility with GI for further workup including possible capsule endoscopy if patient returns to the ER for GI bleeding. (2) Acute post-hemorrhagic anemia Hb fell to 6.8 from baseline of 10.0 Patient was transfused 3 units of packed RBCs Patients bleeding resolved and hb was stable at discharge Colonoscopy did not reveal any active bleeding and source was not found. (3) Iliac artery aneurysm Stable. (4) Alcohol abuse Patient had no signs or symptoms of withdrawal CIWA was discontinued Patient is not a daily drinker but does binge drink at times and is concerned about that and wants to change his habits (5) Hyperlipidemia Patient has a history of hyperlipidemia and takes simvastatin at home. Continued at discharge (6) Depression Patient is a history of depression and uses Prozac at home. Patient's mood was stable and his Prozac was continued. - ALLERGIES Allergies/Adverse Reactions: Allergies Allergy/AdvReac Type Severity Reaction Status Date / Time No Known Drug Allergies Allergy Verified 04/24/18 22:09 - MEDICATIONS Home Medications: Ambulatory Orders Medication Instructions Recorded Confirmed FLUoxetine [PROzac] 20 mg PO DAILY 12/23/12 04/25/18 Ranitidine HCl [Acid Control] 150 mg PO QPM 12/23/12 04/25/18 Zolpidem [Ambien] 5 mg PO QPM PRN 12/23/12 04/25/18 Simvastatin 10 mg PO QPM 04/24/18 04/25/18 Multivitamin [Theragran] 1 each PO DAILY 04/25/18 04/25/18 Sildenafil Citrate [Sildenafil] 20 - 40 mg PO ONCE PRN 04/25/18 04/25/18 - PHYSICAL EXAM AT DISCHARGE General Appearance: positive: No acute distress, Alert Eyes Bilateral: positive: Normal inspection, PERRL, EOMI, No lid inflammation, Conjunctivae nml, No scleral icterus ENT: positive: ENT inspection nml, Pharynx nml, No signs of dehydration. negative: Purulent nasal drainage, Pharyngeal erythema, Oral lesions Neck: positive: Nml inspection, Thyroid nml, No JVD, Trachea midline. negative: Thyromegaly, Lymphadenopathy (R), Lymphadenopathy (L), Stiff neck, Carotid bruit, Tracheal deviation Respiratory: positive: Chest non-tender, No respiratory distress, Breath sounds nml. negative: Wheezes, Rales, Rhonchi Cardiovascular: positive: Regular rate & rhythm, No murmur, No gallop Peripheral Pulses: positive: 2+ Abdomen: positive: Non-tender, No organomegaly, Nml bowel sounds, No distention. negative: Guarding, Rebound, Hepatomegaly Back: positive: Nml inspection. negative: CVA tenderness (R), CVA tenderness (L) Skin: positive: Color nml, No rash, Warm, Dry. negative: Diaphoresis, Pallor, Skin rash Extremities: positive: Non-tender, Full ROM, Nml appearance, No pedal edema Neurologic/Psychiatric: positive: Oriented x3, CN's nml (2-12), Motor nml, Sensation nml, Mood/affect nml - LABS Result Diagrams: 04/28/18 12:05 04/28/18 05:34 Other Lab Results: Laboratory Results WBC 6.4 x10^3/uL (4.8-10.8) 04/28/18 12:05 RBC 2.71 10^6/uL (4.70-6.10) L 04/28/18 12:05 Hgb 8.7 g/dL (14.0-18.0) L 04/28/18 12:05 Hct 25.1 % (42.0-52.0) L 04/28/18 12:05 MCV 92.6 fL (80.0-94.0) 04/28/18 12:05 MCH 32.0 pg (27.0-31.0) H 04/28/18 12:05 MCHC 34.6 g/dL (32.0-36.0) 04/28/18 12:05 RDW 14.2 % (12.0-15.0) 04/28/18 12:05 Plt Count 216 10^3/uL (130-450) 04/28/18 12:05 MPV 7.6 fL (7.4-11.4) 04/28/18 12:05 Neut # (Auto) 2.8 10^3/uL (1.5-6.6) 04/28/18 05:34 Lymph # (Auto) 0.8 10^3/uL (1.5-3.5) L 04/28/18 05:34 Crisp # (Auto) 0.4 10^3/uL (0.0-1.0) 04/28/18 05:34 Eos # (Auto) 0.2 10^3/uL (0.0-0.7) 04/28/18 05:34 Baso # (Auto) 0.0 10^3/uL (0.0-0.1) 04/28/18 05:34 Absolute Nucleated RBC 0.00 x10^3/uL 04/28/18 05:34 Nucleated RBC % 0.1 /100WBC 04/28/18 05:34 PT 12.2 secs (9.9-12.6) 04/24/18 22:15 INR 1.1 (0.8-1.2) 04/24/18 22:15 APTT 20.6 secs (24.9-33.3) L 04/24/18 22:15 VBG pH 7.406 (7.31-7.41) 04/28/18 05:34 Ionized Calcium 1.10 mmol/L (1.15-1.33) L 04/28/18 05:34 Sodium 139 mmol/L (135-145) 04/28/18 05:34 Potassium 3.3 mmol/L (3.5-5.0) L 04/28/18 05:34 Chloride 110 mmol/L (101-111) 04/28/18 05:34 Carbon Dioxide 24 mmol/L (21-32) 04/28/18 05:34 Anion Gap 5.0 (6-13) L 04/28/18 05:34 BUN 12 mg/dL (6-20) 04/28/18 05:34 Creatinine 0.8 mg/dL (0.6-1.2) 04/28/18 05:34 Estimated GFR (MDRD) 93 (>89) 04/28/18 05:34 Glucose 106 mg/dL (70-100) H 04/28/18 05:34 Calcium 7.8 mg/dL (8.5-10.3) L 04/28/18 05:34 Ionized Calcium YES 04/28/18 05:34 Total Bilirubin 0.5 mg/dL (0.2-1.0) 04/28/18 05:34 AST 13 IU/L (10-42) 04/28/18 05:34 ALT 10 IU/L (10-60) 04/28/18 05:34 Alkaline Phosphatase 37 IU/L (42-121) L 04/28/18 05:34 Troponin I 0.04 ng/mL (<0.49) 04/24/18 22:15 Total Protein 4.5 g/dL (6.7-8.2) L 04/28/18 05:34 Albumin 2.7 g/dL (3.2-5.5) L 04/28/18 05:34 Globulin 1.8 g/dL (2.1-4.2) L 04/28/18 05:34 Albumin/Globulin Ratio 1.5 (1.0-2.2) 04/28/18 05:34 Lipase 23 U/L (22-51) 04/24/18 22:15 Urine Color YELLOW 04/25/18 00:12 Urine Clarity CLEAR (CLEAR) 04/25/18 00:12 Urine pH 6.0 PH (5.0-7.5) 04/25/18 00:12 Ur Specific Sargeant 1.025 (1.002-1.030) 04/25/18 00:12 Urine Protein NEGATIVE mg/dL (NEGATIVE) 04/25/18 00:12 Urine Glucose (UA) NEGATIVE mg/dL (NEGATIVE) 04/25/18 00:12 Urine Ketones 15 mg/dL (NEGATIVE) H 04/25/18 00:12 Urine Occult Blood NEGATIVE (NEGATIVE) 04/25/18 00:12 Urine Nitrite NEGATIVE (NEGATIVE) 04/25/18 00:12 Urine Bilirubin NEGATIVE (NEGATIVE) 04/25/18 00:12 Urine Urobilinogen 0.2 (NORMAL) E.U./dL (NORMAL) 04/25/18 00:12 Ur Leukocyte Esterase NEGATIVE (NEGATIVE) 04/25/18 00:12 Ur Microscopic Review NOT INDICATED 04/25/18 00:12 Urine Culture Comments NOT INDICATED 04/25/18 00:12 Ethyl Alcohol < 5.0 mg/dL 04/24/18 22:15 Blood Type A POSITIVE 04/27/18 00:35 Antibody Screen NEGATIVE 04/27/18 00:35 Crossmatch IS Only See Detail 04/27/18 00:35 - DIAGNOSTIC IMAGING Diagnostic Imaging Results: Final report reviewed Diagnostic Imaging Results Comments: CT abdomen/pelvis Impression: 1. No acute inflammatory or obstructive process seen in the abdomen or pelvis 2. Small hiatal hernia. 3. Colonic diverticulosis 4. Post prostatectomy and partial colectomy. 5. Moderate atherosclerotic disease of the aorta and branches severe coronary calcifications. 6. Right common internal iliac artery aneurysm measuring up to 35 x 34 mm increased from prior study when it measured 30 x 30 mm at the same level. - FOLLOW UP Follow Up: Patient discharged home after admission for lower GI bleed. Source of bleed not found on colonoscopy the patient's bleeding resolved and hemoglobin remained stable. Patient required 2 units of packed RBCs while he was hospitalized. The patient will follow up with his primary care physician. If he does continue to bleed he will need to see GI for further workup and if he is back in the ER for GI bleeding surgery recommends that he be transferred to a center with angiography. - TIME SPENT Time Spent in Discharge (Minutes): 45
== END 2018-04-28 18:17 | disposition home or self-care (01) | DRG 378 ==
LOC: EDUNIT# → ED 22:02 → MS2 04-25 00:43 → INTOOBSV 04-25 00:43 → OBSVTOIN 04-27 10:40 → ICU 04-28 15:39 → MS2 04-28 15:45
PROVIDERS: ADMIT Specialist; ATTEND Internal Medicine
PROC: 30233N1 Transfusion of Nonautologous Red Blood Cells into Peripheral Vein, Percutaneous Approach (ICD-10-PCS; principal; 2018-04-27)
PROC: 0DJD8ZZ Inspection of Lower Intestinal Tract, Via Natural or Artificial Opening Endoscopic (ICD-10-PCS; 2018-04-28)
DX: K57.31 Diverticulosis of large intestine without perforation or abscess with bleeding (principal); D62 Acute posthemorrhagic anemia; Q27.33 Arteriovenous malformation of digestive system vessel; I72.3 Aneurysm of iliac artery; F10.10 Alcohol abuse, uncomplicated; R10.9 Unspecified abdominal pain; R55 Syncope and collapse; E78.00 Pure hypercholesterolemia, unspecified; F51.05 Insomnia due to other mental disorder; K21.0 Gastro-esophageal reflux disease with esophagitis; H91.93 Unspecified hearing loss, bilateral; G47.00 Insomnia, unspecified; F41.8 Other specified anxiety disorders; E78.5 Hyperlipidemia, unspecified; G47.30 Sleep apnea, unspecified; K21.9 Gastro-esophageal reflux disease without esophagitis; H91.90 Unspecified hearing loss, unspecified ear; Z87.11 Personal history of peptic ulcer disease; Z86.010 Personal history of colon polyps; Z87.891 Personal history of nicotine dependence; Z79.899 Other long term (current) drug therapy; Z90.49 Acquired absence of other specified parts of digestive tract; Z85.46 Personal history of malignant neoplasm of prostate; Z90.79 Acquired absence of other genital organ(s)
CPT/HCPCS: 36415; 36430; 74177; 80048; 80053; 80320; 81001; 81003; 82330; 83690; 84484; 85018; 85025; 85027; 85610; 85730; 86850; 86900; 86901; 86920; 87086; 93005; 96361; 96365; 96366; 96375; 96376; 99284

== ENCOUNTER 2018-05-30 10:14 | Outpatient (CLI) | payer MEDICARE ==
[2018-05-30 17:21] LABS: BASOPHILS % (AUTO) 0.9 %; EOSINOPHILS # (AUTO) 0.1 10^3/uL (0.0-0.7); EOSINOPHILS % (AUTO) 2.1 %; HGB - HEMOGLOBIN 10.8 g/dL (14.0-18.0); LYMPHOCYTES # (AUTO) 0.6 10^3/uL (1.5-3.5); LYMPHOCYTES % (AUTO) 15.3 %; MEAN CORPUSCULAR HEMOGLOBIN 29.5 pg (27.0-31.0); MEAN CORPUSCULAR HGB CONC 32.7 g/dL (32.0-36.0); MEAN CORPUSCULAR VOLUME 90.2 fL (80.0-94.0); MEAN PLATELET VOLUME 8.2 fL (7.4-11.4); MONOCYTES # (AUTO) 0.3 10^3/uL (0.0-1.0); MONOCYTES % (AUTO) 6.9 %; NEUTROPHILS # (AUTO) 3.2 10^3/uL (1.5-6.6); NEUTROPHILS % (AUTO) 74.8 %; PLT - PLATELET COUNT 320 10^3/uL (130-450); RED BLOOD COUNT 3.66 10^6/uL (4.70-6.10); RED CELL DISTRIBUTION WIDTH 15.2 % (12.0-15.0); WHITE BLOOD COUNT 4.2 x10^3/uL (4.8-10.8)
[2018-05-30 17:50] LABS: ALBUMIN 3.8 g/dL (3.2-5.5); ALBUMIN/GLOBULIN RATIO 1.6 (1.0-2.2); ALKALINE PHOSPHATASE 52 IU/L (42-121); ALT ALANINE AMINOTRANSFERASE 14 IU/L (10-60); AST ASPARTATE AMINOTRANSFERASE 15 IU/L (10-42); BILIRUBIN,TOTAL 0.7 mg/dL (0.2-1.0); BUN - BLOOD UREA NITROGEN 16 mg/dL (6-20); CALCIUM 8.8 mg/dL (8.5-10.3); CARBON DIOXIDE - CO2 26 mmol/L (21-32); CHLORIDE 107 mmol/L (101-111); CHOLESTEROL 163 mg/dL; CREATININE 0.9 mg/dL (0.6-1.2); GFR - MDRD 81 (>89); GLUCOSE 99 mg/dL (70-100); HDL CHOLESTEROL 55 mg/dL; LDL CHOLESTEROL,CALCULATED 94 mg/dL; LDL/HDL RATIO 1.7 (<3.6); SODIUM 139 mmol/L (135-145); TOTAL PROTEIN 6.2 g/dL (6.7-8.2); VLDL CHOLESTEROL 14 mg/dL
== END 2018-05-30 10:15 | disposition home or self-care (01) ==
LOC: LAB.S 10:14
PROVIDERS: ATTEND Nurse Practitioner Family
DX: K92.2 Gastrointestinal hemorrhage, unspecified (principal); E78.5 Hyperlipidemia, unspecified; C61 Malignant neoplasm of prostate; G47.00 Insomnia, unspecified; K62.5 Hemorrhage of anus and rectum
CPT/HCPCS: 36415; 80053; 80061; 83721; 84153; 84443; 85025

== ENCOUNTER 2018-07-11 09:51 | Outpatient (CLI) | payer MEDICARE ==
[2018-07-11 18:42] LABS: BASOPHILS # (AUTO) 0.1 10^3/uL (0.0-0.1); BASOPHILS % (AUTO) 1.2 %; EOSINOPHILS # (AUTO) 0.2 10^3/uL (0.0-0.7); EOSINOPHILS % (AUTO) 3.1 %; HGB - HEMOGLOBIN 13.7 g/dL (14.0-18.0); LYMPHOCYTES # (AUTO) 0.8 10^3/uL (1.5-3.5); LYMPHOCYTES % (AUTO) 15.2 %; MEAN CORPUSCULAR HEMOGLOBIN 29.2 pg (27.0-31.0); MEAN CORPUSCULAR HGB CONC 32.7 g/dL (32.0-36.0); MEAN CORPUSCULAR VOLUME 89.3 fL (80.0-94.0); MEAN PLATELET VOLUME 8.7 fL (7.4-11.4); MONOCYTES # (AUTO) 0.4 10^3/uL (0.0-1.0); MONOCYTES % (AUTO) 7.5 %; NEUTROPHILS # (AUTO) 3.7 10^3/uL (1.5-6.6); PLT - PLATELET COUNT 292 10^3/uL (130-450); RED BLOOD COUNT 4.69 10^6/uL (4.70-6.10)
[2018-07-11 19:00] LABS: % IRON SATURATION 12 % (20-50); IRON 49 ug/dL (45-182); TOTAL IRON BINDING CAPACITY 419 ug/dL (250-450); TRANSFERRIN 299 mg/dL (180-329)
== END 2018-07-11 23:59 | disposition home or self-care (01) ==
LOC: LAB.S 09:51
PROVIDERS: ATTEND Nurse Practitioner Family
DX: K62.5 Hemorrhage of anus and rectum (principal)
CPT/HCPCS: 36415; 83540; 84466; 85025

== ENCOUNTER 2018-08-08 08:00 | Outpatient (CLI) | payer MEDICARE | END 2018-08-08 23:59 | disposition home or self-care (01) | LOC: LAB.S 08:00 | PROVIDERS: ATTEND Nurse Practitioner Family | DX: Z53.9 Procedure and treatment not carried out, unspecified reason (principal) | CPT/HCPCS: 36415; 83540; 84466; 85025 ==

== ENCOUNTER 2020-02-09 07:04 | Outpatient (CLI) | payer MEDICARE ==
[2020-02-09 15:02] LABS: BASOPHILS # (AUTO) 0.1 10^3/uL (0.0-0.1); EOSINOPHILS # (AUTO) 0.1 10^3/uL (0.0-0.7); EOSINOPHILS % (AUTO) 2.6 %; HGB - HEMOGLOBIN 13.9 g/dL (14.0-18.0); LYMPHOCYTES # (AUTO) 0.9 10^3/uL (1.5-3.5); LYMPHOCYTES % (AUTO) 17.2 %; MEAN CORPUSCULAR HEMOGLOBIN 30.1 pg (27.0-31.0); MEAN CORPUSCULAR HGB CONC 32.3 g/dL (32.0-36.0); MEAN CORPUSCULAR VOLUME 93.3 fL (80.0-94.0); MONOCYTES # (AUTO) 0.5 10^3/uL (0.0-1.0); MONOCYTES % (AUTO) 9.1 %; NEUTROPHILS # (AUTO) 3.6 10^3/uL (1.5-6.6); NEUTROPHILS % (AUTO) 69.9 %; PLT - PLATELET COUNT 286 10^3/uL (130-450); RED BLOOD COUNT 4.62 10^6/uL (4.70-6.10); RED CELL DISTRIBUTION WIDTH 13.7 % (12.0-15.0); WHITE BLOOD COUNT 5.1 x10^3/uL (4.8-10.8)
[2020-02-09 15:35] LABS: ALBUMIN 4.1 g/dL (3.2-5.5); ALKALINE PHOSPHATASE 53 IU/L (42-121); ALT ALANINE AMINOTRANSFERASE 15 IU/L (10-60); AST ASPARTATE AMINOTRANSFERASE 16 IU/L (10-42); BILIRUBIN,TOTAL 0.8 mg/dL (0.2-1.0); BUN - BLOOD UREA NITROGEN 16 mg/dL (6-20); CARBON DIOXIDE - CO2 26 mmol/L (21-32); CHLORIDE 104 mmol/L (101-111); CHOL/HDL RATIO 4.4 (<5.0); CHOLESTEROL 251 mg/dL; CREATININE 0.9 mg/dL (0.6-1.2); GLUCOSE 93 mg/dL (70-100); HDL CHOLESTEROL 57 mg/dL; LDL CHOLESTEROL,CALCULATED 176 mg/dL; LDL/HDL RATIO 3.1 (<3.6); SODIUM 137 mmol/L (135-145); TOTAL PROTEIN 6.2 g/dL (6.7-8.2); VLDL CHOLESTEROL 18 mg/dL
== END 2020-02-09 07:05 | disposition home or self-care (01) ==
LOC: LAB.S 07:04
PROVIDERS: ATTEND Registered Nurse
DX: K57.90 Diverticulosis of intestine, part unspecified, without perforation or abscess without bleeding (principal); R53.83 Other fatigue; E78.5 Hyperlipidemia, unspecified; G47.00 Insomnia, unspecified; K21.9 Gastro-esophageal reflux disease without esophagitis; F32.9 Major depressive disorder, single episode, unspecified
CPT/HCPCS: 36415; 80053; 80061; 83721; 84443; 85025

== ENCOUNTER 2022-01-26 08:00 | Outpatient (CLI) | payer MEDICARE ==
[2022-01-26 19:52] LABS: BASOPHILS % (AUTO) 0.7 %; EOSINOPHILS # (AUTO) 0.1 10^3/uL (0.0-0.7); HCT - HEMATOCRIT 29.3 % (42.0-52.0); HGB - HEMOGLOBIN 9.2 g/dL (14.0-18.0); LYMPHOCYTES # (AUTO) 0.9 10^3/uL (1.5-3.5); LYMPHOCYTES % (AUTO) 14.3 %; MEAN CORPUSCULAR HGB CONC 31.4 g/dL (32.0-36.0); MEAN CORPUSCULAR VOLUME 89.1 fL (80.0-94.0); MEAN PLATELET VOLUME 9.7 fL (7.4-11.4); MONOCYTES # (AUTO) 0.5 10^3/uL (0.0-1.0); MONOCYTES % (AUTO) 9.1 %; NEUTROPHILS # (AUTO) 4.4 10^3/uL (1.5-6.6); NEUTROPHILS % (AUTO) 73.4 %; PLT - PLATELET COUNT 402 10^3/uL (130-450); RED BLOOD COUNT 3.29 10^6/uL (4.70-6.10); RED CELL DISTRIBUTION WIDTH 17.1 % (12.0-15.0); WHITE BLOOD COUNT 5.9 x10^3/uL (4.8-10.8)
== END 2022-01-26 23:59 | disposition home or self-care (01) ==
LOC: LAB.S 08:00
PROVIDERS: ATTEND Registered Nurse
DX: D64.9 Anemia, unspecified (principal); K62.5 Hemorrhage of anus and rectum
CPT/HCPCS: 36415; 85025

== ENCOUNTER 2022-04-14 11:16 | Outpatient (CLI) | payer MEDICARE ==
[2022-04-14 14:33] LABS: BASOPHILS % (AUTO) 0.7 %; EOSINOPHILS # (AUTO) 0.4 10^3/uL (0.0-0.7); EOSINOPHILS % (AUTO) 6.5 %; HCT - HEMATOCRIT 39.5 % (42.0-52.0); HGB - HEMOGLOBIN 13.1 g/dL (14.0-18.0); LYMPHOCYTES # (AUTO) 0.4 10^3/uL (1.5-3.5); LYMPHOCYTES % (AUTO) 7.3 %; MEAN CORPUSCULAR HGB CONC 33.2 g/dL (32.0-36.0); MEAN CORPUSCULAR VOLUME 90.4 fL (80.0-94.0); MEAN PLATELET VOLUME 10.6 fL (7.4-11.4); MONOCYTES # (AUTO) 0.5 10^3/uL (0.0-1.0); MONOCYTES % (AUTO) 8.5 %; NEUTROPHILS # (AUTO) 4.6 10^3/uL (1.5-6.6); NEUTROPHILS % (AUTO) 76.7 %; PLT - PLATELET COUNT 296 10^3/uL (130-450); RED BLOOD COUNT 4.37 10^6/uL (4.70-6.10); RED CELL DISTRIBUTION WIDTH 16.1 % (12.0-15.0)
[2022-04-14 15:20] LABS: ALBUMIN 3.7 g/dL (3.2-5.5); ALBUMIN/GLOBULIN RATIO 1.4 (1.0-2.2); BILIRUBIN,TOTAL 0.5 mg/dL (0.2-1.0); CREATININE 0.7 mg/dL (0.6-1.2); POTASSIUM 4.3 mmol/L (3.5-5.0); TOTAL PROTEIN 6.4 g/dL (6.7-8.2)
== END 2022-04-14 11:17 | disposition home or self-care (01) ==
LOC: LAB.S 11:16
PROVIDERS: ATTEND Family Medicine
DX: C61 Malignant neoplasm of prostate (principal); Z85.46 Personal history of malignant neoplasm of prostate; Z12.5 Encounter for screening for malignant neoplasm of prostate; Z79.899 Other long term (current) drug therapy; E78.5 Hyperlipidemia, unspecified; D64.9 Anemia, unspecified
CPT/HCPCS: 36415; 80053; 84153; 85025

== ENCOUNTER 2022-06-08 16:07 | Emergency (ER) | payer MEDICARE ==
[2022-06-08 16:16] VITALS: BP 123/75
== END 2022-06-08 16:16 | disposition left against medical advice (07) ==
LOC: ED 16:07
DX: Z53.29 Procedure and treatment not carried out because of patient's decision for other reasons (principal)

== ENCOUNTER 2022-06-11 13:32 | Outpatient (CLI) | payer MEDICARE ==
[2022-06-11 20:23] LABS: BASOPHILS % (AUTO) 0.8 %; EOSINOPHILS # (AUTO) 0.1 10^3/uL (0.0-0.7); EOSINOPHILS % (AUTO) 2.8 %; HCT - HEMATOCRIT 25.5 % (42.0-52.0); HGB - HEMOGLOBIN 7.3 g/dL (14.0-18.0); LYMPHOCYTES # (AUTO) 0.7 10^3/uL (1.5-3.5); LYMPHOCYTES % (AUTO) 12.9 %; MEAN CORPUSCULAR HEMOGLOBIN 28.2 pg (27.0-31.0); MEAN CORPUSCULAR HGB CONC 28.6 g/dL (32.0-36.0); MEAN CORPUSCULAR VOLUME 98.5 fL (80.0-94.0); MEAN PLATELET VOLUME 9.4 fL (7.4-11.4); MONOCYTES # (AUTO) 0.4 10^3/uL (0.0-1.0); MONOCYTES % (AUTO) 8.5 %; NEUTROPHILS # (AUTO) 3.8 10^3/uL (1.5-6.6); PLT - PLATELET COUNT 402 10^3/uL (130-450); RED BLOOD COUNT 2.59 10^6/uL (4.70-6.10)
[2022-06-11 20:37] LABS: ALBUMIN 3.4 g/dL (3.2-5.5); ALBUMIN/GLOBULIN RATIO 1.5 (1.0-2.2); BILIRUBIN,TOTAL 0.2 mg/dL (0.2-1.0); CALCIUM 8.7 mg/dL (8.5-10.3); CREATININE 0.8 mg/dL (0.6-1.2); POTASSIUM 4.3 mmol/L (3.5-5.0); TOTAL PROTEIN 5.7 g/dL (6.7-8.2)
[2022-06-11 21:22] LABS: PLATELET MORPHOLOGY NORMAL APPEARANCE (NORMAL); SLIDE REVIEW? Indicated
[2022-06-11 21:23] LABS: PLATELET ESTIMATE, MANUAL NORMAL (130-450,000) (NORMAL)
== END 2022-06-11 13:33 | disposition home or self-care (01) ==
LOC: LAB.S 13:32
PROVIDERS: ATTEND Registered Nurse
DX: K62.5 Hemorrhage of anus and rectum (principal); D64.9 Anemia, unspecified; R53.83 Other fatigue
CPT/HCPCS: 36415; 80053; 85025

== ENCOUNTER 2022-06-18 08:00 | Outpatient (CLI) | payer MEDICARE ==
[2022-06-18 14:33] LABS: BASOPHILS # (AUTO) 0.1 10^3/uL (0.0-0.1); BASOPHILS % (AUTO) 1.5 %; EOSINOPHILS # (AUTO) 0.1 10^3/uL (0.0-0.7); EOSINOPHILS % (AUTO) 2.2 %; HCT - HEMATOCRIT 27.5 % (42.0-52.0); HGB - HEMOGLOBIN 8.3 g/dL (14.0-18.0); LYMPHOCYTES # (AUTO) 0.7 10^3/uL (1.5-3.5); LYMPHOCYTES % (AUTO) 13.7 %; MEAN CORPUSCULAR HEMOGLOBIN 27.9 pg (27.0-31.0); MEAN CORPUSCULAR HGB CONC 30.2 g/dL (32.0-36.0); MEAN CORPUSCULAR VOLUME 92.6 fL (80.0-94.0); MEAN PLATELET VOLUME 9.4 fL (7.4-11.4); MONOCYTES # (AUTO) 0.5 10^3/uL (0.0-1.0); MONOCYTES % (AUTO) 8.3 %; NEUTROPHILS % (AUTO) 73.7 %; PLT - PLATELET COUNT 424 10^3/uL (130-450); RED BLOOD COUNT 2.97 10^6/uL (4.70-6.10); WHITE BLOOD COUNT 5.4 x10^3/uL (4.8-10.8)
== END 2022-06-18 23:59 | disposition home or self-care (01) ==
LOC: LAB.S 08:00
PROVIDERS: ATTEND Student in an Organized Health Care Education/Training Program
DX: D62 Acute posthemorrhagic anemia (principal)
CPT/HCPCS: 36415; 85025

== ENCOUNTER → 2022-10-12 13:17 | Outpatient (CLI) | payer MEDICARE ==
--- NOTE | 2022-10-12 12:41 | XRAY Report ---
PROCEDURE: Foot 3 View RT INDICATIONS: DISPLACED FRACTURE OF 5TH METATARSAL OF RIGHT FOOT TECHNIQUE: 3 views of the foot were acquired. COMPARISON: None FINDINGS: Bones: Fracture through fifth metatarsal base is seen with up to 1.7 mm diastases at fracture site. O steoarthritic changes are noted throughout right foot most notably at first MTP joint with prominent dorsal osteophyte formation concerning for hallux limitus. No other fracture or dislocation. No suspi cious bony lesions. Soft tissues: No tibiotalar joint effusion. Achilles tendon appears normal. IMPRESSION: 1. Minimally displaced fifth metatarsal base fracture as above. 2. Right foot osteoarthritis with concerning for hallux limitus. Reviewed by: Nando Mcarthur MD on 10/12/2022 12:40 PM PDT Approved by: Nando Mcarthur MD on 10/12/2022 12:40 PM PDT Station ID: [id number]
== END | disposition home or self-care (01) ==
LOC: DI.S 13:17
PROVIDERS: ATTEND Physician Assistant
DX: S92.351A Displaced fracture of fifth metatarsal bone, right foot, initial encounter for closed fracture (principal); M19.071 Primary osteoarthritis, right ankle and foot

== ENCOUNTER 2022-10-23 12:59 | Outpatient (CLI) | payer MEDICARE ==
[2022-10-23 14:37] LABS: BASOPHILS # (AUTO) 0.1 10^3/uL (0.0-0.1); BASOPHILS % (AUTO) 0.8 %; EOSINOPHILS # (AUTO) 0.1 10^3/uL (0.0-0.7); EOSINOPHILS % (AUTO) 1.6 %; HCT - HEMATOCRIT 37.4 % (42.0-52.0); HGB - HEMOGLOBIN 11.8 g/dL (14.0-18.0); LYMPHOCYTES % (AUTO) 16.9 %; MEAN CORPUSCULAR HEMOGLOBIN 28.6 pg (27.0-31.0); MEAN CORPUSCULAR HGB CONC 31.6 g/dL (32.0-36.0); MEAN CORPUSCULAR VOLUME 90.6 fL (80.0-94.0); MEAN PLATELET VOLUME 9.7 fL (7.4-11.4); MONOCYTES # (AUTO) 0.4 10^3/uL (0.0-1.0); MONOCYTES % (AUTO) 6.4 %; NEUTROPHILS # (AUTO) 4.5 10^3/uL (1.5-6.6); NEUTROPHILS % (AUTO) 73.8 %; PLT - PLATELET COUNT 313 10^3/uL (130-450); RED BLOOD COUNT 4.13 10^6/uL (4.70-6.10); RED CELL DISTRIBUTION WIDTH 18.1 % (12.0-15.0); WHITE BLOOD COUNT 6.1 x10^3/uL (4.8-10.8)
== END 2022-10-23 13:00 | disposition home or self-care (01) ==
LOC: LAB.S 12:59
PROVIDERS: ATTEND Registered Nurse
DX: K62.5 Hemorrhage of anus and rectum (principal); D64.9 Anemia, unspecified; R53.83 Other fatigue
CPT/HCPCS: 36415; 85025

== ENCOUNTER 2023-01-20 12:28 | Outpatient (CLI) | payer MEDICARE ==
[2023-01-20 14:34] LABS: BASOPHILS # (AUTO) 0.1 10^3/uL (0.0-0.1); BASOPHILS % (AUTO) 0.7 %; EOSINOPHILS # (AUTO) 0.1 10^3/uL (0.0-0.7); EOSINOPHILS % (AUTO) 1.3 %; HGB - HEMOGLOBIN 13.8 g/dL (14.0-18.0); LYMPHOCYTES # (AUTO) 0.9 10^3/uL (1.5-3.5); LYMPHOCYTES % (AUTO) 12.7 %; MEAN CORPUSCULAR HEMOGLOBIN 30.3 pg (27.0-31.0); MEAN CORPUSCULAR HGB CONC 33.7 g/dL (32.0-36.0); MEAN CORPUSCULAR VOLUME 90.1 fL (80.0-94.0); MEAN PLATELET VOLUME 10.1 fL (7.4-11.4); MONOCYTES # (AUTO) 0.4 10^3/uL (0.0-1.0); MONOCYTES % (AUTO) 6.2 %; NEUTROPHILS # (AUTO) 5.5 10^3/uL (1.5-6.6); PLT - PLATELET COUNT 285 10^3/uL (130-450); RED BLOOD COUNT 4.55 10^6/uL (4.70-6.10); RED CELL DISTRIBUTION WIDTH 13.2 % (12.0-15.0)
== END 2023-01-20 12:29 | disposition home or self-care (01) ==
LOC: LAB.S 12:28
PROVIDERS: ATTEND Registered Nurse
DX: D64.9 Anemia, unspecified (principal)
CPT/HCPCS: 36415; 85025

== ENCOUNTER 2023-02-11 11:06 | Outpatient (CLI) | payer MEDICARE ==
[2023-02-11 15:38] LABS: CREATININE 0.8 mg/dL (0.6-1.2)
== END 2023-02-11 11:07 | disposition home or self-care (01) ==
LOC: LAB.S 11:06
PROVIDERS: ATTEND Registered Nurse
DX: I72.9 Aneurysm of unspecified site (principal); Z13.9 Encounter for screening, unspecified
CPT/HCPCS: 36415; 82565

== ENCOUNTER 2023-04-19 11:25 | Outpatient (CLI) | payer MEDICARE ==
[2023-04-19 14:46] LABS: BASOPHILS # (AUTO) 0.1 10^3/uL (0.0-0.1); BASOPHILS % (AUTO) 1.1 %; EOSINOPHILS # (AUTO) 0.5 10^3/uL (0.0-0.7); EOSINOPHILS % (AUTO) 5.3 %; HCT - HEMATOCRIT 25.9 % (42.0-52.0); HGB - HEMOGLOBIN 8.2 g/dL (14.0-18.0); LYMPHOCYTES % (AUTO) 10.8 %; MEAN CORPUSCULAR HEMOGLOBIN 30.4 pg (27.0-31.0); MEAN CORPUSCULAR HGB CONC 31.7 g/dL (32.0-36.0); MEAN CORPUSCULAR VOLUME 95.9 fL (80.0-94.0); MEAN PLATELET VOLUME 9.3 fL (7.4-11.4); MONOCYTES # (AUTO) 0.5 10^3/uL (0.0-1.0); MONOCYTES % (AUTO) 5.2 %; NEUTROPHILS # (AUTO) 7.3 10^3/uL (1.5-6.6); NEUTROPHILS % (AUTO) 77.1 %; PLT - PLATELET COUNT 559 10^3/uL (130-450); RED CELL DISTRIBUTION WIDTH 14.2 % (12.0-15.0); WHITE BLOOD COUNT 9.5 x10^3/uL (4.8-10.8)
== END 2023-04-19 11:26 | disposition home or self-care (01) ==
LOC: LAB.S 11:25
PROVIDERS: ATTEND Registered Nurse
DX: D64.9 Anemia, unspecified (principal)
CPT/HCPCS: 36415; 85025

== ENCOUNTER 2023-05-06 13:22 | Outpatient (CLI) | payer MEDICARE ==
[2023-05-06 19:46] LABS: BASOPHILS # (AUTO) 0.1 10^3/uL (0.0-0.1); EOSINOPHILS # (AUTO) 0.3 10^3/uL (0.0-0.7); EOSINOPHILS % (AUTO) 4.6 %; HCT - HEMATOCRIT 29.2 % (42.0-52.0); HGB - HEMOGLOBIN 8.7 g/dL (14.0-18.0); LYMPHOCYTES # (AUTO) 0.9 10^3/uL (1.5-3.5); LYMPHOCYTES % (AUTO) 13.8 %; MEAN CORPUSCULAR HEMOGLOBIN 29.2 pg (27.0-31.0); MEAN CORPUSCULAR HGB CONC 29.8 g/dL (32.0-36.0); MEAN PLATELET VOLUME 9.4 fL (7.4-11.4); MONOCYTES # (AUTO) 0.4 10^3/uL (0.0-1.0); MONOCYTES % (AUTO) 6.1 %; NEUTROPHILS % (AUTO) 74.1 %; PLT - PLATELET COUNT 391 10^3/uL (130-450); RED BLOOD COUNT 2.98 10^6/uL (4.70-6.10); RED CELL DISTRIBUTION WIDTH 15.3 % (12.0-15.0); WHITE BLOOD COUNT 6.7 x10^3/uL (4.8-10.8)
== END 2023-05-06 13:23 | disposition home or self-care (01) ==
LOC: LAB.S 13:22
PROVIDERS: ATTEND Registered Nurse
DX: D62 Acute posthemorrhagic anemia (principal)
CPT/HCPCS: 36415; 85025

== ENCOUNTER 2023-06-08 08:03 | Outpatient (CLI) | payer MEDICARE ==
[2023-06-08 15:02] LABS: BASOPHILS # (AUTO) 0.1 10^3/uL (0.0-0.1); BASOPHILS % (AUTO) 1.3 %; EOSINOPHILS # (AUTO) 0.3 10^3/uL (0.0-0.7); EOSINOPHILS % (AUTO) 5.5 %; HCT - HEMATOCRIT 37.9 % (42.0-52.0); HGB - HEMOGLOBIN 11.8 g/dL (14.0-18.0); LYMPHOCYTES # (AUTO) 0.8 10^3/uL (1.5-3.5); LYMPHOCYTES % (AUTO) 14.7 %; MEAN CORPUSCULAR HEMOGLOBIN 28.9 pg (27.0-31.0); MEAN CORPUSCULAR HGB CONC 31.1 g/dL (32.0-36.0); MEAN CORPUSCULAR VOLUME 92.7 fL (80.0-94.0); MEAN PLATELET VOLUME 9.8 fL (7.4-11.4); MONOCYTES # (AUTO) 0.5 10^3/uL (0.0-1.0); MONOCYTES % (AUTO) 8.5 %; NEUTROPHILS # (AUTO) 3.7 10^3/uL (1.5-6.6); NEUTROPHILS % (AUTO) 69.8 %; PLT - PLATELET COUNT 337 10^3/uL (130-450); RED BLOOD COUNT 4.09 10^6/uL (4.70-6.10); RED CELL DISTRIBUTION WIDTH 14.6 % (12.0-15.0); WHITE BLOOD COUNT 5.3 x10^3/uL (4.8-10.8)
[2023-06-08 15:38] LABS: ALBUMIN/GLOBULIN RATIO 1.8 (1.0-2.2); ALKALINE PHOSPHATASE 84 IU/L (42-121); ALT ALANINE AMINOTRANSFERASE 8 IU/L (10-60); AST ASPARTATE AMINOTRANSFERASE 11 IU/L (10-42); BILIRUBIN,TOTAL 0.2 mg/dL (0.2-1.0); BUN - BLOOD UREA NITROGEN 13 mg/dL (6-20); CALCIUM 9.4 mg/dL (8.5-10.3); CARBON DIOXIDE - CO2 28 mmol/L (21-32); CHLORIDE 103 mmol/L (101-111); CHOLESTEROL 195 mg/dL; CREATININE 0.8 mg/dL (0.6-1.3); GFR - MDRD 92 (>89); GLUCOSE 80 mg/dL (74-104); HDL CHOLESTEROL 49 mg/dL; LDL CHOLESTEROL,CALCULATED 128 mg/dL; LDL/HDL RATIO 2.6 (<3.6); POTASSIUM 4.3 mmol/L (3.5-4.5); SODIUM 136 mmol/L (135-145); TOTAL PROTEIN 6.2 g/dL (6.4-8.9); TRIGLYCERIDES 92 mg/dL (48-352); VLDL CHOLESTEROL 18 mg/dL
== END 2023-06-08 08:04 | disposition home or self-care (01) ==
LOC: LAB.S 08:03
PROVIDERS: ATTEND Registered Nurse
DX: Z79.899 Other long term (current) drug therapy (principal); Z13.220 Encounter for screening for lipoid disorders; Z12.5 Encounter for screening for malignant neoplasm of prostate
CPT/HCPCS: 36415; 80053; 80061; 85025; G0103; 83721; 84153

== ENCOUNTER 2023-09-24 08:59 | Outpatient (CLI) | payer MEDICARE ==
[2023-09-24 15:09] LABS: BASOPHILS # (AUTO) 0.1 10^3/uL (0.0-0.1); BASOPHILS % (AUTO) 1.2 %; EOSINOPHILS # (AUTO) 0.2 10^3/uL (0.0-0.7); EOSINOPHILS % (AUTO) 2.6 %; HCT - HEMATOCRIT 32.9 % (42.0-52.0); LYMPHOCYTES # (AUTO) 0.9 10^3/uL (1.5-3.5); LYMPHOCYTES % (AUTO) 14.6 %; MEAN CORPUSCULAR HEMOGLOBIN 26.3 pg (27.0-31.0); MEAN CORPUSCULAR HGB CONC 30.4 g/dL (32.0-36.0); MEAN CORPUSCULAR VOLUME 86.6 fL (80.0-94.0); MEAN PLATELET VOLUME 9.5 fL (7.4-11.4); MONOCYTES # (AUTO) 0.6 10^3/uL (0.0-1.0); MONOCYTES % (AUTO) 9.8 %; NEUTROPHILS # (AUTO) 4.2 10^3/uL (1.5-6.6); NEUTROPHILS % (AUTO) 71.5 %; PLT - PLATELET COUNT 349 10^3/uL (130-450); RED CELL DISTRIBUTION WIDTH 14.8 % (12.0-15.0); WHITE BLOOD COUNT 5.8 x10^3/uL (4.8-10.8)
== END 2023-09-24 09:00 | disposition home or self-care (01) ==
LOC: LAB.S 08:59
PROVIDERS: ATTEND Registered Nurse
DX: D64.9 Anemia, unspecified (principal)
CPT/HCPCS: 36415; 85025

== ENCOUNTER 2023-11-25 11:26 | Outpatient (CLI) | payer MEDICARE ==
[2023-11-25 14:16] LABS: BASOPHILS # (AUTO) 0.1 10^3/uL (0.0-0.1); BASOPHILS % (AUTO) 0.7 %; EOSINOPHILS # (AUTO) 0.1 10^3/uL (0.0-0.7); EOSINOPHILS % (AUTO) 1.5 %; HCT - HEMATOCRIT 37.1 % (42.0-52.0); HGB - HEMOGLOBIN 11.6 g/dL (14.0-18.0); LYMPHOCYTES # (AUTO) 0.8 10^3/uL (1.5-3.5); LYMPHOCYTES % (AUTO) 9.8 %; MEAN CORPUSCULAR HEMOGLOBIN 24.7 pg (27.0-31.0); MEAN CORPUSCULAR HGB CONC 31.3 g/dL (32.0-36.0); MEAN CORPUSCULAR VOLUME 79.1 fL (80.0-94.0); MEAN PLATELET VOLUME 9.6 fL (7.4-11.4); MONOCYTES # (AUTO) 0.6 10^3/uL (0.0-1.0); MONOCYTES % (AUTO) 7.7 %; NEUTROPHILS # (AUTO) 6.6 10^3/uL (1.5-6.6); NEUTROPHILS % (AUTO) 80.1 %; PLT - PLATELET COUNT 345 10^3/uL (130-450); RED BLOOD COUNT 4.69 10^6/uL (4.70-6.10); RED CELL DISTRIBUTION WIDTH 16.8 % (12.0-15.0); WHITE BLOOD COUNT 8.2 x10^3/uL (4.8-10.8)
[2023-11-25 14:49] LABS: FERRITIN 8.5 ng/mL (23.9-336.2)
== END 2023-11-25 11:27 | disposition home or self-care (01) ==
LOC: LAB.S 11:26
PROVIDERS: ATTEND Registered Nurse
DX: R53.83 Other fatigue (principal); Z86.2 Personal history of diseases of the blood and blood-forming organs and certain disorders involving the immune mechanism
CPT/HCPCS: 36415; 82728; 83540; 84466; 85025

== ENCOUNTER 2024-01-18 08:34 | Outpatient (CLI) | payer MEDICARE ==
[2024-01-18 15:24] LABS: BASOPHILS # (AUTO) 0.1 10^3/uL (0.0-0.1); BASOPHILS % (AUTO) 1.1 %; EOSINOPHILS # (AUTO) 0.1 10^3/uL (0.0-0.7); EOSINOPHILS % (AUTO) 2.2 %; HCT - HEMATOCRIT 40.6 % (42.0-52.0); LYMPHOCYTES # (AUTO) 0.7 10^3/uL (1.5-3.5); LYMPHOCYTES % (AUTO) 13.1 %; MEAN CORPUSCULAR HEMOGLOBIN 27.5 pg (27.0-31.0); MEAN CORPUSCULAR VOLUME 85.8 fL (80.0-94.0); MONOCYTES # (AUTO) 0.4 10^3/uL (0.0-1.0); NEUTROPHILS # (AUTO) 4.1 10^3/uL (1.5-6.6); NEUTROPHILS % (AUTO) 75.4 %; PLT - PLATELET COUNT 277 10^3/uL (130-450); RED BLOOD COUNT 4.73 10^6/uL (4.70-6.10); WHITE BLOOD COUNT 5.5 x10^3/uL (4.8-10.8)
[2024-01-18 15:30] LABS: SLIDE REVIEW? Indicated
[2024-01-18 16:14] LABS: PLATELET ESTIMATE, MANUAL NORMAL (130-450,000) (NORMAL); PLATELET MORPHOLOGY NORMAL APPEARANCE (NORMAL); RBC MORPHOLOGY (MULTIPLE) 1+ ANISOCYTOSIS (NORMAL)
== END 2024-01-18 08:35 | disposition home or self-care (01) ==
LOC: LAB.S 08:34
PROVIDERS: ATTEND Registered Nurse
DX: E61.1 Iron deficiency (principal)
CPT/HCPCS: 36415; 82728; 83540; 84466; 85025